=== PATIENT | female | born 1955 | race Caucasian/White ===

== ENCOUNTER 2018-11-08 13:53 | Observation (INO) | payer MEDICARE, OTHER ==
--- NOTE | 2018-11-08 14:09 | ED ---
Chest Pain HPI - General Chief Complaint: Chest Pain Stated Complaint: Chest Pain/Hypertension Time Seen by Provider: 11/08/18 14:04 Source: patient, RN notes reviewed, old records reviewed Mode of arrival: wheelchair Limitations: no limitations - History of Present Illness Initial Comments: This is a 63-year-old female the ER for evaluation history of hypertension high cholesterol. Former history of smoking. No recent travel history no sick contacts. Patient coming of chest pain diaphoresis and shortness of breath for a few days now. No significant modifying factors that she can relate. No fevers. No nausea vomiting and diarrhea. No recent change in medical history of medical problems. No recent change in medications. Chest pain and di fficulty breathing significantly worse today MD Complaint: chest pain -: hour(s) Onset: during rest, during exertion Pain Location: substernal, left chest Pain Radiation: LUE Severity: moderate Severity scale (1-10): 4 Quality: heaviness Consistency: constant Improves With: nothing Worsens With: nothing Treatments Prior to Arrival: none - Related Data Home Medications Medication Instructions Recorded Confirmed Albuterol Inhaler [Ventolin Hfa 2 puff INHALATION RT-Q6H PRN 01/09/14 11/08/18 Inhaler] FLUoxetine HCL [PROzac] 20 mg PO TID 01/09/14 11/08/18 Fluticasone/Salmeterol [Advair 1 puff INHALATION RT-BID 01/09/14 11/08/18 250-50 Diskus] Hydrocodone/Acetaminophen 1 tab PO Q6HR PRN 01/09/14 11/08/18 [Hydrocodone/Acetaminophen 5-325] Zolpidem [Ambien] 10 mg PO HS PRN 01/09/14 11/08/18 Atorvastatin [Lipitor] 40 mg PO DAILY 11/08/18 11/08/18 Ibuprofen [Motrin] 600 mg PO TID PRN 11/08/18 11/08/18 Losartan/Hydrochlorothiazide 1 tab PO DAILY 11/08/18 11/08/18 [Losartan-Hctz 100-25 mg Tab] Allergies Allergy/AdvReac Type Severity Reaction Status Date / Time No Known Allergies Allergy Verified 11/08/18 14:12 Review of Systems ROS Statement: Those systems with pertinent positive or pertinent negative responses have been documented in the HPI. ROS Other: All systems not noted in ROS Statement are negative. EKG Findings - EKG Comments: EKG Findings:: EKG shows sinus rhythm rate of 89, NC 120, QRS 72, QTc 479 Past Medical History Past Medical History: Asthma, Hypertension Additional Past Medical History / Comment(s): Pt states she awoke this am-0400 with upper chest pressure/tightness/SOB? confused-seeing family not there and using wrong words/. She tried using her Albuterol inhaler with no relief. then drove pt to ER. History of Any Multi-Drug Resistant Organisms: None Reported Past Surgical History: Appendectomy, Back Surgery, Cholecystectomy, Hysterectomy, Tonsillectomy Additional Past Surgical History / Comment(s): Hx [address] Jones. Low back surgery [id number] elsewhere. Hysterectomy at age 22 then at age 36 bilateral oophorectomy d/t ovarian CA-had some chemotherapy. Lap cholectomy 2011 Dr. Landaverde. Past Anesthesia/Blood Transfusion Reactions: No Reported Reaction Past Psychological History: No Psychological Hx Reported Smoking Status: Never smoker Past Alcohol Use History: None Reported Past Drug Use History: None Reported - Past Family History Father Family Medical History: No Reported History Additional Family Medical History / Comment(s): Father at age 94 of "old age" Mother Family Medical History: Diabetes Mellitus Additional Family Medical History / Comment(s): Mother at 74yrs of pancreatic CA. General Exam Limitations: no limitations General appearance: alert, in no apparent distress Head exam: Present: atraumatic, normocephalic, normal inspection Eye exam: Present: normal appearance, PERRL, EOMI. Absent: scleral icterus, conjunctival injection, periorbital swelling ENT exam: Present: normal exam, mucous membranes moist Neck exam: Present: normal inspection. Absent: tenderness, meningismus, lymphadenopathy Respiratory exam: Present: normal lung sounds bilaterally. Absent: respiratory distress, wheezes, rales, rhonchi, stridor Cardiovascular Exam: Present: regular rate, normal rhythm, normal heart sounds. Absent: systolic murmur, diastolic murmur, rubs, gallop, clicks GI/Abdominal exam: Present: soft, normal bowel sounds. Absent: distended, tenderness, guarding, rebound, rigid Extremities exam: Present: normal inspection, full ROM, normal capillary refill. Absent: tenderness, pedal edema, joint swelling, calf tenderness Back exam: Present: normal inspection Neurological exam: Present: alert, oriented X3, CN II-XII intact Psychiatric exam: Present: normal affect, normal mood Skin exam: Present: warm, dry, intact, normal color. Absent: rash Course Vital Signs 11/08/18 13:59 Temperature 98.3 F Pulse Rate 97 Respiratory 16 Rate Blood Pressure 161/104 O2 Sat by Pulse 96 Oximetry - Reevaluation(s) Reevaluation #1: 11/08/18 15:58 Medical record is reviewed Reevaluation #2: 11/08/18 15:59 Patient still with chest pain currently Chest Pain MDM - MDM 63 female the ER for evaluation chest pain history of heart risk factors including high cholesterol high blood pressure. Patient be admitted for cardiac observation Critical Care Time Critical Care Time: Yes Total Critical Care Time: 31 Disposition Clinical Impression: Chest pain Disposition: ADMITTED IP TO THIS HOSP Condition: Undetermined Instructions (If sedation given, give patient instructions): Chest Pain (ED) Is patient prescribed a controlled substance at d/c from ED?: No Referrals: Gail Ace MD [Primary Care Provider] - 1-2 days
[2018-11-08 14:42] LABS: Albumin 4.5 g/dL (3.5-5.0); Calcium 9.8 mg/dL (8.4-10.2); D-Dimer 0.46 mg/L FEU (<0.60); Magnesium 2.3 mg/dL (1.6-2.3); Partial Thromboplastin Time 26.5 sec (22.0-30.0); Potassium 4.2 mmol/L (3.5-5.1); Prothrombin Time 10.8 sec (9.0-12.0); Total Bilirubin 0.5 mg/dL (0.2-1.3); Total Protein 7.9 g/dL (6.3-8.2)
[2018-11-08 15:01] LABS: Basophils # (A) 0.1 k/uL (0-0.2); Basophils % (A) 0 %; Eosinophils # (A) 0.1 k/uL (0-0.7); Eosinophils % (A) 1 %; HCT 45.7 % (34.0-46.0); Lymphocytes # (A) 2.9 k/uL (1.0-4.8); Lymphocytes % (A) 24 %; MCH 29.6 pg (25.0-35.0); MCHC 30.7 g/dL (31.0-37.0); MCV 96.4 fL (80.0-100.0); Mean Platelet Volume 7.3; Monocytes # (A) 0.4 k/uL (0-1.0); Monocytes % (A) 3 %; Neutrophils # (A) 8.5 k/uL (1.3-7.7); Neutrophils % (A) 70 %; Platelet Count 566 k/uL (150-450); RBC 4.74 m/uL (3.80-5.40); RDW 13.8 % (11.5-15.5); WBC 12.2 k/uL (3.8-10.6)
--- NOTE | 2018-11-08 15:41 | P.HPIM ---
History of Present Illness Chief Complaint: Nausea and shortness of breath This very pleasant 62-year-old female who comes into the ER with above-mentioned complaint. The patient says that for the past few days she's been having more nausea and also she is having vomiting. She said that she's more shortness of breath and is having cough as well. She does not complain of any chest pain but says that she feels like more like heartburn in the center of the chest. She otherwise does not complain of any abdominal pain, no diarrhea consultation, no tingling numbness on in the extremities, itch no rash. She tried albuterol at home there was no relief so they came to the ER ER course-temperature 98.3 pulse 97 respirations 16 blood pressure 16-1/104 satting 96% 2 L.. Labwork was initial WBC 12.2 hemoglobin 14.0 platelets 566 d- dimer was 0.46 potassium 4.2 sodium 140 B1 19 creatinine 0.90 troponin was 0.012 lipase is 115. EKG was done which showed normal sinus rhythm. Review of Systems All systems: negative Past Medical History Past Medical History: Asthma, Hypertension Additional Past Medical History / Comment(s): Pt states she awoke this am-0400 with upper chest pressure/tightness/SOB? confused-seeing family not there and using wrong words/. She tried using her Albuterol inhaler with no relief. then drove pt to ER. History of Any Multi-Drug Resistant Organisms: None Reported Past Surgical History: Appendectomy, Back Surgery, Cholecystectomy, Hysterec cristopher, Tonsillectomy Additional Past Surgical History / Comment(s): Hx [address] Jones. Low back surgery [id number] elsewhere. Hysterectomy at age 22 then at age 36 bilateral oophorectomy d/t ovarian CA-had some chemotherapy. Lap cholectomy 2011 Dr. Landaverde. Past Anesthesia/Blood Transfusion Reactions: No Reported Reaction Past Psychological History: No Psychological Hx Reported Smoking Status: Never smoker Past Alcohol Use History: None Reported Past Drug Use History: None Reported - Past Family History Father Family Medical History: No Reported History Additional Family Medical History / Comment(s): Father at age 94 of "old age" Mother Family Medical History: Diabetes Mellitus Additional Family Medical History / Comment(s): Mother at 74yrs of pancreatic CA. Medications and Allergies Home Medications Medication Instructions Recorded Confirmed Type Albuterol Inhaler [Ventolin Hfa 2 puff INHALATION RT-Q6H PRN 01/09/14 11/08/18 History Inhaler] FLUoxetine HCL [PROzac] 20 mg PO TID 01/09/14 11/08/18 History Fluticasone/Salmeterol [Advair 1 puff INHALATION RT-BID 01/09/14 11/08/18 History 250-50 Diskus] Hydrocodone/Acetaminophen 1 tab PO Q6HR PRN 01/09/14 11/08/18 History [Hydrocodone/Acetaminophen 5-325] Zolpidem [Ambien] 10 mg PO HS PRN 01/09/14 11/08/18 History Atorvastatin [Lipitor] 40 mg PO DAILY 11/08/18 11/08/18 History Ibuprofen [Motrin] 600 mg PO TID PRN 11/08/18 11/08/18 History Losartan/Hydrochlorothiazide 1 tab PO DAILY 11/08/18 11/08/18 History [Losartan-Hctz 100-25 mg Tab] Allergies Allergy/AdvReac Type Severity Reaction Status Date / Time No Known Allergies Allergy Verified 11/08/18 14:12 Physical Exam Vitals: Vital Signs Temp Pulse Resp BP Pulse Ox 11/08/18 13:59 98.3 F 97 16 161/104 96 Intake and Output 11/08/18 11/08/18 11/08/18 06:59 14:59 22:59 Other: Weight 72.575 kg On exam, alert and oriented x3. HEENT: Conjunctivae normal. eyes normal. NECK: No JVD. No thyroid enlargement. No LNs CARDIOVASCULAR: S1, S2 muffled. No murmur RESPIRATION: Breath sounds diminished in the bases. No rhonchi or crackles. No bronchial breathing. ABDOMEN: Soft, nontender . No guarding. no masses palpable. No ascites, No hepatosplenomegaly.Bowel sounds heard. LEGS: No edema. no swelling NERVOUS SYSTEM: Cranial N 2-12 grossly normal. Moves all 4 limbs. No focal deficits. No sensory deficit. No signs of cerebellar dysfucntion. Skin: no ulcer no rash Joints: No active swelling. No inflammation. Lymphatic system. No LN neck axilla or groin. Results CBC & Chem 7: 11/08/18 14:13 11/08/18 14:13 Labs: Abnormal Lab Results - Last 24 Hours (Table) 11/08/18 11/08/18 Range/Units 14:13 14:13 WBC 12.2 H (3.8-10.6) k/uL MCHC 30.7 L (31.0-37.0) g/dL Plt Count 566 H (150-450) k/uL Neutrophils # 8.5 H (1.3-7.7) k/uL Carbon Dioxide 20 L (22-30) mmol/L Glucose 110 H (74-99) mg/dL Alkaline Phosphatase 144 H (38-126) U/L Assessment and Plan Assessment: - Nausea, chest pain burning in nature shortness of breath, need to rule out cardiac cause - Hypertension - Asthma Plan - We will admit the patient to [facility] with telemetry under observation - We will monitor troponin levels - The patient is going for a chest x-ray of the time examination. The chest x- ray is negative patient might need to rule out a PE. We'll also get a VQ scan or a CTA depending upon the situation - We will probably consult cardiology to rule out a cardiac cause - Patient says that she has more as her house. At the time she's not wheezing. We will put on some breathing treatments and see the help. If she doesn't improve may be she can be put on steroids later on - We'll resume the patient's home medications - DVT and GI prophylaxis - We'll order for lab work in the morning - Patient is full code
--- NOTE | 2018-11-08 15:47 | XR ---
EXAMINATION TYPE: XR chest 2V DATE OF EXAM: 11/08/2018 COMPARISON: 01/09/2014 INDICATION: Chest pain asthma history short of breath TECHNIQUE: Frontal and lateral views of the chest are obtained. FINDINGS: The heart size is normal. The pulmonary vasculature is normal. The lungs are clear. Postsurgical changes are within the lower lumbar spine IMPRESSION: 1. No acute pulmonary process.
[2018-11-08] MEDS ORDERED: HEPARIN SODIUM,PORCINE 5,000 UNIT/ML 1 ML VIAL IV PRN (15:54)
[2018-11-08] MEDS ORDERED: HEPARIN SODIUM,PORCINE 5,000 UNIT/ML 1 ML VIAL IV ONE (15:54)
[2018-11-08] MEDS ORDERED: NITROGLYCERIN SL TABS 0.4 MG TAB SUBLINGUAL PRN (15:54)
[2018-11-08] MEDS ORDERED: ASPIRIN 81 MG PO STA (15:54)
[2018-11-08] MEDS ORDERED: HEPARIN SOD,PORK IN 0.45% NACL 25,000 UNIT in 0.45% NACL 1 250ML.BAG IV SCH (16:00)
[2018-11-08] MEDS ORDERED: ONDANSETRON 4 MG/2 ML VIAL IVP PRN ×2 (16:50→22:01)
[2018-11-08] MEDS ORDERED: ENALAPRILAT 1.25 MG/ML 1 ML VIAL IVP STA (17:18)
--- NOTE | 2018-11-08 18:50 | CT ---
EXAMINATION TYPE: CT angio chest DATE OF EXAM: 11/08/2018 6:18 PM COMPARISON: 01/09/2014 HISTORY: Chest pain, difficulty breathing. CT DLP: 311 mGycm Automated exposure control for dose reduction was used. CONTRAST: CTA scan of the thorax is performed with IV Contrast, patient injected with 100 mL of Isovue 370, pul monary embolism protocol. . There are 3-D post processed images. FINDINGS: There is some reticular nodular infiltrate in both lower lobes. There is some scarring and subsegment al atelectasis at the lung bases. There is no mediastinal adenopathy. Thoracic aorta is intact withou t evidence of aneurysm or dissection. There are no hilar masses. There is normal contrast opacification of the pulmonary arteries. There ar e no filling defects. The bony thorax appears intact. IMPRESSION: NO EVIDENCE OF PULMONARY EMBOLISM. PATCHY BILATERAL LOWER LOBE PULMONARY RETICULAR-NODULAR INFILTRATE LIKELY RELATED TO INFLAMMATORY DIS EASE AND ATELECTASIS.
[2018-11-08] MEDS ORDERED: LABETALOL SYRINGE 5 MG/ML IVP STA (19:29)
[2018-11-08] MEDS: SODIUM CHLORIDE 0.9% 1,000 ML IV SCH (19:41)
[2018-11-08 21:21] VITALS: BMI 26.6
[2018-11-08] MEDS ORDERED: ALBUTEROL NEBULIZED 2.5 MG/3 ML INHALATION PRN (21:35)
[2018-11-08] MEDS ORDERED: IBUPROFEN 600 MG TAB PO PRN (21:35)
[2018-11-08] MEDS: ZOLPIDEM 10 MG TAB PO PRN (21:59)
[2018-11-08] MEDS: FLUoxetine HCL 20 MG CAP PO SCH (22:00)
[2018-11-09] MEDS: SODIUM CHLORIDE 0.9% 1,000 ML IV SCH ×3 (03:06→20:04)
[2018-11-09] MEDS: SYMBICORT 80-4.5 MCG INHALER INHALATION SCH ×2 (07:06→18:54)
[2018-11-09 07:16] LABS: Mean Platelet Volume 7.2; Platelet Count 465 k/uL (150-450)
[2018-11-09 07:31] LABS: Cholesterol 251 mg/dL (<200); HDL Cholesterol 57 mg/dL (40-60); LDL Cholesterol,Calculated 149 mg/dL (0-99); Triglycerides 223 mg/dL (<150)
[2018-11-09] MEDS ORDERED: ATORVASTATIN 80 MG TAB PO SCH ×2 (09:00)
[2018-11-09] MEDS ORDERED: DOBUTamine DRIP for NUC MED 500 MG in DEXTROSE/WATER 1 250ML.BAG IV ONE ×2 (09:21→10:02)
--- NOTE | 2018-11-09 11:38 | P.CRDCN ---
History of Present Illness History of present illness: This is a pleasant 63-year-old female past medical history significant for dyslipidemia, hypertension and former nicotine dependence. 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 We've been asked to see her in consultation secondary to chest discomfort. She states about 2 weeks ago she started having nausea and vomiting , was unable to tolerate PO intake for about 4 days. Since that time she has been persistently nauseated with no specific aggravating factor however is tolerating PO intake. She also describes a burning sensation in the mid-sternal region that has been intermittent and ongoing for the last 5 years that is resolved with with OTC antacids. She went to see PCP yesterday regarding nausea and her blood pressure was quite elevated so she was sent to ED for further evaluation. Upon arrival to the emergency department blood pressure was 161/104 and 177/109. She was given IV labetalol and enalapril. She has had no chest pain since arriving at the hospital. She also describes that she has felt incr easingly short of breath with a non-productive cough recently and feels like she is wheezing with minimal activity. She believes she may have COPD however has not been diagnosed as such. EKG reveals sinus mechanism with no acute ST or T wave abnormalities noted. Chest x-ray is negative for acute cardiopulmonary process. CTA chest negative for pulmonary embolism with evidence of bilateral lower lobe nodule/infiltrates. Laboratory data reviewed, WBC 12.2, hemoglobin 14, platelets 465, d-dimer 0.46, sodium 140, potassium 4.2, creatinine 0.9, magnesium 2.3, cardiac enzymes negative 3, LDL 149. Current cardiac medications include atorvastatin 40 mg daily and losartan/HCTZ 100/25 mg daily. At the time of my exam: CONSTITUTIONAL: Denies fever. Denies chills. EYES: Denies blurred vision. Denies vision changes. Denies eye pain. EARS, NOSE, MOUTH & THROAT: Denies headache. Denies sore throat. Denies ear pain. CARDIOVASCULAR: Denies chest pain. Denies shortness of breath. Denies orthopnea. Denies PND. Denies palpitations. RESPIRATORY: Denies cough. GASTROINTESTINAL: Denies abdominal pain. Denies diarrhea. Denies constipation. Denies nausea. Denies vomiting. MUSCULOSKELETAL: Denies myalgias. INTEGUMENTARY: Denies pruitis. Denies rash. NEUROLOGIC: Denies numbness. Denies tingling. Denies weakness. PSYCHIATRIC: Denies anxiety. Denies depression. ENDOCRINE: Denies fatigue. Denies weight change. Denies polydipsia. Denies polyurina. GENITOURINARY: Denies burning, hematuria or urgency with micturation. HEMATOLOGIC: Denies history of anemia. Denies bleeding. Blood pressure 94/61 heart rate 52 afebrile maintaining oxygen saturation on room air GENERAL: This is a 63-year-old female in no apparent distress at the time of my examination. HEENT: Head is atraumatic, normocephalic. Pupils are equal, round. Sclerae anicteric. Conjunctivae are clear. Mucous membranes of the mouth are moist. Neck is supple. There is no jugular venous distention. No carotid bruit is heard. LUNGS: Clear to auscultation no wheezes, rales or rhonchi. No chest wall tenderness is noted on palpation or with deep breathing. HEART: Regular rate and rhythm without murmurs, rubs or gallops. S1 and S2 heard. ABDOMEN: Soft, nontender. Bowel sounds are heard. No organomegaly noted. EXTREMITIES: No evidence of peripheral edema and no calf tenderness noted. VASCULAR: Radial and dorsalis pedis pulses palpated, no evidence of clubbing. NEUROLOGIC: Patient is awake, alert and oriented x3. ASSESSMENT Chest pain, atypical for angina. An acute coronary event has been ruled out. Leukocytosis Hypertension Dyslipidemia Former nicotine dependence PLAN An acute coronary event has been ruled out, discontinue heparin infusion. Obtain 2D echocardiogram and doppler study to assess cardiac structure and function. Perform dobutamine stress echocardiogram to assess for stress induced ischemia. CT scan evidence of lower lobe infiltrates with cough and leukocytosis, consider possibility of pneumonia as cause for symptoms. If stress test and echo are normal she is stable from a cardiac perspective. Increase atorvastatin as tolerated to 80 mg daily for persistent elevated LDL despite medication compliance. Diet modifications discussed as well. Follow up in the office with Dr. Weir upon discharge. Thank you kindly for this consultation. Nurse Practitioner note has been reviewed, I agree with a documented findings and plan of care. Patient was seen and examined. Past Medical History Past Medical History: Asthma, Hypertension Additional Past Medical History / Comment(s): . History of Any Multi-Drug Resistant Organisms: None Reported Past Surgical History: Appendectomy, Back Surgery, Cholecystectomy, Hysterectomy, Tonsillectomy Additional Past Surgical History / Comment(s): Hx [address] Jones. Low back surgery [id number] elsewhere. Hysterectomy at age 22 then at age 36 bilateral oophorectomy d/t ovarian CA-had some chemotherapy. Lap cholectomy 2011 Dr. Landaverde. Past Anesthesia/Blood Transfusion Reactions: No Reported Reaction Smoking Status: Never smoker - Past Family History Father Family Medical History: No Reported History Additional Family Medical History / Comment(s): Father at age 94 of "old age" Mother Family Medical History: Diabetes Mellitus Additional Family Medical History / Comment(s): Mother at 74yrs of pancreatic CA. Medications and Allergies Home Medications Medication Instructions Recorded Confirmed Type Albuterol Inhaler [Ventolin Hfa 2 puff INHALATION RT-Q6H PRN 01/09/14 11/08/18 History Inhaler] FLUoxetine HCL [PROzac] 20 mg PO TID 01/09/14 11/08/18 History Fluticasone/Salmeterol [Advair 1 puff INHALATION RT-BID 01/09/14 11/08/18 History 250-50 Diskus] Zolpidem [Ambien] 10 mg PO HS PRN 01/09/14 11/08/18 History Atorvastatin [Lipitor] 40 mg PO DAILY 11/08/18 11/08/18 History Ibuprofen [Motrin] 600 mg PO TID PRN 11/08/18 11/08/18 History Losartan/Hydrochlorothiazide 1 tab PO DAILY 11/08/18 11/08/18 History [Losartan-Hctz 100-25 mg Tab] Allergies Allergy/AdvReac Type Severity Reaction Status Date / Time No Known Allergies Allergy Verified 11/08/18 21:11 Physical Exam Vitals: Vital Signs Temp Pulse Pulse Resp BP BP Pulse Ox 11/09/18 07:36 98.1 F 52 L 16 94/61 94 L 11/09/18 07:10 96 11/09/18 03:53 98.2 F 78 16 94/58 96 11/09/18 02:23 16 11/08/18 23:34 98.6 F 80 16 100/68 96 11/08/18 23:32 16 11/08/18 21:38 98.3 F 80 16 101/69 96 11/08/18 20:49 124/80 11/08/18 20:01 132/91 11/08/18 20:00 16 11/08/18 19:00 85 17 161/103 96 11/08/18 18:30 89 175/99 97 11/08/18 18:00 88 9 L 171/101 95 11/08/18 17:30 86 9 L 165/106 97 11/08/18 17:00 92 38 H 157/111 96 11/08/18 16:30 90 16 98 11/08/18 16:00 164/106 11/08/18 15:30 164/106 11/08/18 15:00 90 15 165/107 97 11/08/18 14:30 91 15 177/109 97 11/08/18 14:10 100 11 L 93 L 11/08/18 13:59 98.3 F 97 16 161/104 96 Intake and Output 11/08/18 11/09/18 11/09/18 22:59 06:59 14:59 Intake Total 66.334 Balance 66.334 Intake: Intake, IV Titration 66.334 Amount Heparin Sod,Pork in 0.45% 66.334 NaCl 25,000 unit In 0.45 % NaCl 1 250ml.bag @ 12 UNITS/KG/HR 8.709 mls/hr IV .Q24H [facility] Rx#: [id number] Other: # Voids 1 Results 11/09/18 06:11 11/08/18 14:13 Cardiac Enzymes 11/08/18 11/08/18 11/08/18 Range/Units 14:13 14:13 20:14 AST 21 (14-36) U/L Troponin I <0.012 <0.012 (0.000-0.034) ng/mL 11/09/18 Range/Units 01:29 AST (14-36) U/L Troponin I <0.012 (0.000-0.034) ng/mL Coagulation 11/08/18 11/08/18 11/09/18 Range/Units 14:13 23:03 06:11 PT 10.8 (9.0-12.0) sec APTT 26.5 45.1 H 50.4 H (22.0-30.0) sec Lipids 11/09/18 Range/Units 06:11 Triglycerides 223 H (<150) mg/dL Cholesterol 251 H (<200) mg/dL HDL Cholesterol 57 (40-60) mg/dL CBC 11/08/18 11/09/18 Range/Units 14:13 06:11 WBC 12.2 H (3.8-10.6) k/uL RBC 4.74 (3.80-5.40) m/uL Hgb 14.0 (11.4-16.0) gm/dL Hct 45.7 (34.0-46.0) % Plt Count 566 H 465 H (150-450) k/uL Comprehensive Metabolic Panel 11/08/18 Range/Units 14:13 Sodium 140 (137-145) mmol/L Potassium 4.2 (3.5-5.1) mmol/L Chloride 105 (98-107) mmol/L Carbon Dioxide 20 L (22-30) mmol/L BUN 9 (7-17) mg/dL Creatinine 0.90 (0.52-1.04) mg/dL Glucose 110 H (74-99) mg/dL Calcium 9.8 (8.4-10.2) mg/dL AST 21 (14-36) U/L ALT 12 (9-52) U/L Alkaline Phosphatase 144 H (38-126) U/L Total Protein 7.9 (6.3-8.2) g/dL Albumin 4.5 (3.5-5.0) g/dL Current Medications Generic Name Dose Route Start Last Admin Trade Name Freq PRN Reason Stop Dose Admin Albuterol Sulfate 2.5 mg 11/08/18 21:35 Ventolin Nebulized INHALATION RT-Q6H PRN Shortness Of Breath Aspirin 325 mg 11/09/18 09:00 Aspirin PO DAILY ALESSIO Budesonide/Formoterol Fumarate 2 puff 11/09/18 08:00 11/09/18 07:06 Symbicort 80-4.5 Mcg Inhaler INHALATION 2 puff RT-BID ALESSIO Administration Fluoxetine HCl 20 mg 11/08/18 22:00 11/08/18 22:00 Prozac PO 20 mg TID ALESSIO Administration HCTZ/Losartan Potassium 1 each 11/09/18 09:00 Hyzaar 50-12.5 PO DAILY ALESSIO Heparin Sodium (Porcine) 0 unit 11/08/18 15:54 Heparin IV Q6HR PRN Low PTT Protocol Sodium Chloride 1,000 mls @ 100 mls/hr 11/08/18 16:00 11/09/18 03:06 Saline 0.9% IV Not Given .Q10H [facility] Ibuprofen 600 mg 11/08/18 21:35 Motrin PO TID PRN Pain Nitroglycerin 0.4 mg 11/08/18 15:54 Nitrostat SUBLINGUAL Q5M PRN Chest Pain Ondansetron HCl 4 mg 11/08/18 16:50 11/08/18 16:50 Zofran IVP 4 mg ONCE PRN Administration Nausea And Vomiting Ondansetron HCl 4 mg 11/08/18 22:01 11/08/18 22:05 Zofran IVP 4 mg Q6HR PRN Administration Nausea And Vomiting Zolpidem Tartrate 10 mg 11/08/18 21:35 11/08/18 21:59 Ambien PO 10 mg HS PRN Administration Insomnia Intake and Output 11/08/18 11/09/18 11/09/18 22:59 06:59 14:59 Intake Total 66.334 Balance 66.334 Intake: Intake, IV Titration 66.334 Amount Heparin Sod,Pork in 0.45% 66.334 NaCl 25,000 unit In 0.45 % NaCl 1 250ml.bag @ 12 UNITS/KG/HR 8.709 mls/hr IV .Q24H [facility] Rx#: [id number] Other: # Voids 1 11/09/18 06:11 11/08/18 14:13
[2018-11-09] MEDS ORDERED: ONDANSETRON 4 MG/2 ML VIAL ONE (12:00)
[2018-11-09] MEDS: FLUoxetine HCL 20 MG CAP PO SCH ×3 (12:26→21:28)
[2018-11-09] MEDS: ASPIRIN 325 MG TAB PO SCH (12:26)
[2018-11-09] MEDS: LOSARTAN-HCTZ 50-12.5 MG 1 EACH TAB PO SCH (12:26)
[2018-11-09] MEDS: ATORVASTATIN 80 MG TAB PO SCH (12:26)
--- NOTE | 2018-11-09 12:27 | P.STRESS ---
- Stress Test Note Stress Test Results/Findings: Exam Performed: dobutamine stress echo with con Exam Date: 11/09/18 Reason for Exam: CP Height: 5 ft 5 in Weight: 72.575 kg Protocol: DOBUTAMINE STRESS ECHO Stage: 4 Duration of Exercise: 10:54 Resting Heart Rate: 80 Resting Blood Pressure: 123/71 Maximum Achieved Heart Rate: 142 Maximum Achieved Blood Pressure: 155/70 85% PMHR: 132 100% PMHR: 155 METS: NA Technologist Comment: Stress Test Results/Findings: This is a 63-year-old female with history of hypertension, hypercholesteremia, who was admitted to the hospital with complaints of chest pain and nausea. EKGs and cardiac enzymes are negative. Stress data: Baseline EKG showed sinus rhythm with normal NV interval and QRS duration. Blood pressure at rest is 123/71 with pulse rate of 80. A standard dose of dobutamine was initiated and was titrated to maximum of 40 mics, achieving a maximal heart rate 142 with a blood pressure off 103/61. EKGs again during and after the exercise did not reveal any significant changes from the baseline. Occasional PVCs were noted. Echo data: Baseline echo images show normal wall motion and thickening. Exercise echo images showed augmentation of wall motion and thickening in all the segments. Final impression: #1. Negative dobutamine stress test #2. Negative dobutamine stress echo.
[2018-11-09] MEDS ORDERED: methylPREDNISolone SOD SUCCI 125 MG/2 ML VIAL IV STA (15:14)
--- NOTE | 2018-11-09 16:46 | ECHOS ---
Stress Test Results/Findings: Exam Performed: dobutamine stress echo with con Exam Date: 11/09/18 Reason for Exam: CP Height: 5 ft 5 in Weight: 72.575 kg Protocol: DOBUTAMINE STRESS ECHO Stage: 4 Duration of Exercise: 10:54 Resting Heart Rate: 80 Resting Blood Pressure: 123/71 Maximum Achieved Heart Rate: 142 Maximum Achieved Blood Pressure: 155/70 85% PMHR: 132 100% PMHR: 155 METS: NA Technologist Comment: Stress Test Results/Findings: This is a 63-year-old female with history of hypertension, hypercholesteremia, who was admitted to the hospital with complaints of chest pain and nausea. EKGs and cardiac enzymes are negative. Stress data: Baseline EKG showed sinus rhythm with normal AL interval and QRS duration. Blood pressure at rest is 123/71 with pulse rate of 80. A standard dose of dobutamine was initiated and was titrated to maximum of 40 mics, achieving a maximal heart rate 142 with a blood pressure off 103/61. EKGs again during and after the exercise did not reveal any significant changes from the baseline. Occasional PVCs were noted. Echo data: Baseline echo images show normal wall motion and thickening. Exercise echo images showed augmentation of wall motion and thickening in all the segments. Final impression: #1. Negative dobutamine stress test #2. Negative dobutamine stress echo. MONI
[2018-11-09] MEDS: BUDESONIDE 0.5 MG/2 ML NEBU INHALATION SCH (18:49)
[2018-11-09] MEDS: IPRATROPIUM-ALBUTEROL 3 ML NEB INHALATION SCH ×2 (18:49→18:57)
[2018-11-09 19:37] VITALS: RESP 16
[2018-11-09] MEDS: DOXYCYCLINE 100 MG in SODIUM CHLORIDE 0.9% 100 ML IVPB SCH (20:04)
[2018-11-09] MEDS: methylPREDNISolone SOD SUCCI 40 MG/ML 1 ML VIAL IV SCH (23:03)
[2018-11-09] MEDS: ZOLPIDEM 10 MG TAB PO PRN (23:03)
[2018-11-10] MEDS: IPRATROPIUM-ALBUTEROL 3 ML NEB INHALATION SCH ×4 (00:09→11:05)
[2018-11-10] MEDS: SYMBICORT 80-4.5 MCG INHALER INHALATION SCH (07:06)
[2018-11-10] MEDS: BUDESONIDE 0.5 MG/2 ML NEBU INHALATION SCH (07:07)
[2018-11-10] MEDS: FLUoxetine HCL 20 MG CAP PO SCH (09:04)
[2018-11-10] MEDS: ASPIRIN 325 MG TAB PO SCH (09:04)
[2018-11-10] MEDS: methylPREDNISolone SOD SUCCI 40 MG/ML 1 ML VIAL IV SCH (09:04)
[2018-11-10] MEDS: ATORVASTATIN 80 MG TAB PO SCH (09:04)
[2018-11-10] MEDS: LOSARTAN-HCTZ 50-12.5 MG 1 EACH TAB PO SCH (09:04)
[2018-11-10] MEDS: DOXYCYCLINE 100 MG in SODIUM CHLORIDE 0.9% 100 ML IVPB SCH (09:09)
--- NOTE | 2018-11-10 09:51 | P.PN ---
Subjective This very pleasant 62-year-old female who comes into the ER with above-mentioned complaint. The patient says that for the past few days she's been having more nausea and also she is having vomiting. She said that she's more shortness of breath and is having cough as well. She does not complain of any chest pain but says that she feels like more like heartburn in the center of the chest. She otherwise does not complain of any abdominal pain, no diarrhea consultation, no tingling numbness on in the extremities, itch no rash. She tried albuterol at home there was no relief so they came to the ER ER course-temperature 98.3 pulse 97 respirations 16 blood pressure 16-1/104 satting 96% 2 L.. Labwork was initial WBC 12.2 hemoglobin 14.0 platelets 566 d- dimer was 0.46 potassium 4.2 sodium 140 B1 19 creatinine 0.90 troponin was 0.012 lipase is 115. EKG was done which showed normal sinus rhythm. Patient was cleared by cardiology to be discharged At the time examination today patient was short of breath and was having some slight wheezes and is coughing as well. No chest pain or racing heart Objective - Vital Signs Vital signs: Vital Signs Temp 98.6 F 11/10/18 08:00 Pulse 99 11/10/18 08:00 Resp 16 11/10/18 08:00 BP 127/84 11/10/18 08:00 Pulse Ox 95 11/10/18 08:00 Intake & Output 11/09/18 11/10/18 11/10/18 18:59 06:59 18:59 Weight 72.575 kg - Exam On exam, alert and oriented x3. HEENT: Conjunctivae normal. eyes normal. NECK: No JVD. No thyroid enlargement. No LNs CARDIOVASCULAR: S1, S2 muffled. No murmur RESPIRATION: Patient is having mild wheezing ABDOMEN: Soft, nontender . No guarding. no masses palpable. No ascites, No hepatosplenomegaly.Bowel sounds heard. LEGS: No edema. no swelling NERVOUS SYSTEM: Cranial N 2-12 grossly normal. Moves all 4 limbs. No focal deficits. No sensory deficit. No signs of cerebellar dysfucntion. Skin: no ulcer no rash Joints: No active swelling. No inflammation. Lymphatic system. No LN neck axilla or groin. - Labs CBC & Chem 7: 11/09/18 06:11 11/08/18 14:13 Assessment and Plan Assessment: -Acute bronchitis with mild asthma exacerbation - Nausea, chest pain burning in nature shortness of breath, need to rule out cardiac cause - Hypertension - Asthma Plan - We will admit the patient to [facility] with telemetry under observation - We will monitor troponin levels - The patient is going for a chest x-ray of the time examination. The chest x- ray is negative patient might need to rule out a PE. We'll also get a VQ scan or a CTA depending upon the situation - We will probably consult cardiology to rule out a cardiac cause - Patient says that she has more as her house. At the time she's not wheezing. We will put on some breathing treatments and see the help. If she doesn't improve may be she can be put on steroids later on - We'll resume the patient's home medications - DVT and GI prophylaxis - We'll order for lab work in the morning - Patient is full code 11/09/2018 - We will start the patient on Solu-Medrol, started on antibiotics and breathing treatments - We'll continue rest of the medical care - See how the patient does. She was pretty short of breath on exertion and was wheezing. - We'll continue rest of the medical care - The patient improves by tomorrow she will probably be discharged or she might need to be turned as an inpatient
[2018-11-10] MEDS: SODIUM CHLORIDE 0.9% 1,000 ML IV SCH (10:30)
[2018-11-10 12:49] VITALS: BP 150/94; PULSE 101; TEMP 97.6
--- NOTE | 2018-11-10 13:58 | P.DS ---
Providers Date of admission: 11/08/18 15:57 Expected date of discharge: 11/10/18 Attending physician: Radha Lima Consults: 11/08/18 15:54 Consult Physician Urgent Consulting Provider: Isabel Sutherland Consult Reason/Comments: cp Do you want consulting provider notified?: Yes Primary care physician: Gail Ace Hospital Course: Discharge diagnosis -Acute bronchitis with mild asthma exacerbation - Nausea, chest pain burning in nature shortness of breath, need to rule out cardiac cause - Hypertension - Asthma Hospital course This very pleasant 62-year-old female who comes into the ER with above-mentioned complaint. The patient says that for the past few days she's been having more nausea and also she is having vomiting. She said that she's more shortness of breath and is having cough as well. She does not complain of any chest pain but says that she feels like more like heartburn in the center of the chest. She otherwise does not complain of any abdominal pain, no diarrhea consultation, no tingling numbness on in the extremities, itch no rash. She tried albuterol at home there was no relief so they came to the ER ER course-temperature 98.3 pulse 97 respirations 16 blood pressure 16-1/104 satting 96% 2 L.. Labwork was initial WBC 12.2 hemoglobin 14.0 platelets 566 d- dimer was 0.46 potassium 4.2 sodium 140 B1 19 creatinine 0.90 troponin was 0.012 lipase is 115. EKG was done which showed normal sinus rythm Patient was cleared by cardiology to discharge but she was really short of breath and was wheezing at the time examination on 11/09/2018 On 11/10/2018 Patient shortness of breath and cough is much better She does not complain of any chest pain racing heart and was walking up and down the hallway without any problems On exam, alert and oriented x3. HEENT: Conjunctivae normal. eyes normal. NECK: No JVD. No thyroid enlargement. No LNs CARDIOVASCULAR: S1, S2 muffled. No murmur RESPIRATION: Breath sounds diminished in the bases. No rhonchi or crackles. No bronchial breathing. ABDOMEN: Soft, nontender . No guarding. no masses palpable. No ascites, No hepatosplenomegaly.Bowel sounds heard. LEGS: No edema. no swelling NERVOUS SYSTEM: Cranial N 2-12 grossly normal. Moves all 4 limbs. No focal deficits. No sensory deficit. No signs of cerebellar dysfucntion. Skin: no ulcer no rash Joints: No active swelling. No inflammation. Lymphatic system. No LN neck axilla or groin. Patient will be discharged on tapering dose of steroids, we'll discharge antibiotics and breathing treatments Patient is to follow with the primary care doctor in 1-2 days and with the electrostatic painter as per the recommendations Patient Condition at Discharge: Good Plan - Discharge Summary New Discharge Prescriptions: New methylPREDNISolone Dose Pack [Medrol Dose Pack] 4 mg PO DIRECTED #21 package Omeprazole [PriLOSEC] [facility] cap Doxycycline [Vibramycin] 100 mg PO BID 3 Days #14 capsule No Action Albuterol Inhaler [Ventolin Hfa Inhaler] 2 puff INHALATION RT-Q6H PRN PRN Reason: Shortness Of Breath Zolpidem [Ambien] 10 mg PO HS PRN PRN Reason: Insomnia FLUoxetine HCL [PROzac] 20 mg PO TID Fluticasone/Salmeterol [Advair 250-50 Diskus] 1 puff INHALATION RT-BID Ibuprofen [Motrin] 600 mg PO TID PRN PRN Reason: Pain Atorvastatin [Lipitor] 40 mg PO DAILY Losartan/Hydrochlorothiazide [Losartan-Hctz 100-25 mg Tab] 1 tab PO DAILY Discharge Medication List Albuterol Inhaler [Ventolin Hfa Inhaler] 2 puff INHALATION RT-Q6H PRN 01/09/14 [History] FLUoxetine HCL [PROzac] 20 mg PO TID 01/09/14 [History] Fluticasone/Salmeterol [Advair 250-50 Diskus] 1 puff INHALATION RT-BID 01/09/14 [History] Zolpidem [Ambien] 10 mg PO HS PRN 01/09/14 [History] Atorvastatin [Lipitor] 40 mg PO DAILY 11/08/18 [History] Ibuprofen [Motrin] 600 mg PO TID PRN 11/08/18 [History] Losartan/Hydrochlorothiazide [Losartan-Hctz 100-25 mg Tab] 1 tab PO DAILY 11/08/18 [History] Doxycycline [Vibramycin] 100 mg PO BID 3 Days #14 capsule 11/10/18 [Rx] Omeprazole [PriLOSEC] 20 mg PO AC-BRKFST #14 cap 11/10/18 [Rx] methylPREDNISolone Dose Pack [Medrol Dose Pack] 4 mg PO DIRECTED #21 package 11/10/18 [Rx] Follow up Appointment(s)/Referral(s): Gail Ace MD [Primary Care Provider] - 1-2 days Lorena Weir MD [STAFF PHYSICIAN] - 11/23/18 2:30 pm (arrive 15 minutes early and bring ID) Patient Instructions/Handouts: Chest Pain (ED) Activity/Diet/Wound Care/Special Instructions: If you have any increased chest pain racing heart, any cough or shortness of breath, any fever or chills, any headache, nausea vomiting, any diarrhea constipation, please call 911 and come to the ER Discharge Disposition: HOME SELF-CARE
== END 2018-11-10 14:23 | disposition home or self-care (01) ==
LOC: EC 13:53 → 1SOBS 15:57 → 4MS4W 11-10 10:33
PROVIDERS: ADMIT Hospitalist; ATTEND Hospitalist
DX: R07.89 Other chest pain (principal); J20.9 Acute bronchitis, unspecified; J45.901 Unspecified asthma with (acute) exacerbation; I10 Essential (primary) hypertension; E78.00 Pure hypercholesterolemia, unspecified; R11.2 Nausea with vomiting, unspecified; R61 Generalized hyperhidrosis; E78.5 Hyperlipidemia, unspecified; Z79.51 Long term (current) use of inhaled steroids; Z79.899 Other long term (current) drug therapy; Z90.49 Acquired absence of other specified parts of digestive tract; Z90.710 Acquired absence of both cervix and uterus; Z85.43 Personal history of malignant neoplasm of ovary; Z87.891 Personal history of nicotine dependence; Z90.722 Acquired absence of ovaries, bilateral; Z92.21 Personal history of antineoplastic chemotherapy; Z83.3 Family history of diabetes mellitus; Z80.0 Family history of malignant neoplasm of digestive organs
CPT/HCPCS: 96376 ×4; 96366 ×4; 96367; 96375 ×2; 96365; 99291; 36415; 94640 ×3; 94760; 93005; 93306; 85379; 83880; 80061; 80053; 83690; 83735; 84484 ×2; 85025; 85049; 85610; 85730 ×2; 71046; 71275; G0378 ×4; C8930; J1250; J1644 ×2; J2920 ×2; J2930; J2405 ×2; Q9950; Q9967; 93351

== ENCOUNTER → 2019-01-15 | Outpatient (CLI) | payer MEDICARE ==
--- NOTE | 2019-01-15 10:22 | FL ---
EXAMINATION TYPE: FL barium swallow DATE OF EXAM: 01/15/2019 COMPARISON: None HISTORY: GERD TECHNIQUE: A double air contrast UGI study is performed. FINDINGS: The esophagus dilates to normal caliber and has normal contour the gastroesophageal junction. The gas troesophageal junction opens to normal caliber. No hiatal hernia is evident. In the horizontal drinking position there is incomplete stripping of esophageal bolus. Secondary and a few tertiary contractions were evident during the exam. IMPRESSIONS: 1. Mild presbyesophagus with incomplete stripping of esophageal bolus in the horizontal drinking posi tion.
== END | disposition home or self-care (01) ==
LOC: RADUSWWP 08:15
PROVIDERS: ATTEND Surgery Plastic and Reconstructive Surgery
DX: K22.8 Other specified diseases of esophagus (principal)
CPT/HCPCS: 49424; 74220

== ENCOUNTER 2019-01-31 09:27 | Day surgery (SDC) | payer MEDICARE ==
--- NOTE | 2019-01-31 07:49 | P.GSHP ---
History of Present Illness H&P Date: 01/31/19 CHIEF COMPLAINT: GERD HISTORY OF PRESENT ILLNESS: The patient is a 63-year-old female who presents reports gastroesophageal reflux disease. Upper endoscopy was offered for further evaluation and management. PAST MEDICAL HISTORY: Please see list. PAST SURGICAL HISTORY: Please see list. MEDICATIONS: Please see list. ALLERGIES: Please see list. SOCIAL HISTORY: No illicit drug use FAMILY HISTORY: No reports of Crohn disease or ulcerative colitis. REVIEW OF ORGAN SYSTEMS: CONSTITUTIONAL: No reports of fevers or chills. GI: Denies any blood in stools or constipation. PHYSICAL EXAM: VITAL SIGNS: Stable GENERAL: Well-developed and pleasant in no acute distress. HEENT: No scleral icterus. Extraocular movements grossly intact. Moist buccal mucosa. NECK: Supple without lymphadenopathy. CHEST: Unlabored respirations. Equal bilateral excursions. CARDIOVASCULAR: Regular rate and rhythm. Distal 2+ pulses. ABDOMEN: Soft, nondistended. MUSCULOSKELETAL: No clubbing, cyanosis, or edema. ASSESSMENT: 1. Gastroesophageal reflux disease PLAN: 1. Recommend proceeding with an upper endoscopy Past Medical History Past Medical History: Asthma, Hypertension Additional Past Medical History / Comment(s): NAUSEATED FREQUENTLY, PLUS VOMITING History of Any Multi-Drug Resistant Organisms: None Reported Past Surgical History: Appendectomy, Back Surgery, Cholecystectomy, Hysterectomy, Tonsillectomy Additional Past Surgical History / Comment(s): Hx [address] surgery [address]. Jones. Low back surgery [id number] elsewhere. Hysterectomy at age 22 then at age 36 bilateral oophorectomy d/t ovarian CA-had some chemotherapy. Lap cholectomy 2011 Dr. Landaverde. Past Anesthesia/Blood Transfusion Reactions: No Reported Reaction Past Psychological History: Depression Smoking Status: Never smoker Past Alcohol Use History: None Reported Past Drug Use History: None Reported - Past Family History Father Family Medical History: No Reported History Additional Family Medical History / Comment(s): Father at age 94 of "old age" Mother Family Medical History: Diabetes Mellitus Additional Family Medical History / Comment(s): Mother at 74yrs of pancreatic CA. Medications and Allergies Home Medications Medication Instructions Recorded Confirmed Type Albuterol Inhaler [Ventolin Hfa 2 puff INHALATION RT-Q6H PRN 01/09/14 01/30/19 History Inhaler] FLUoxetine HCL [PROzac] 20 mg PO TID 01/09/14 01/30/19 History Fluticasone/Salmeterol [Advair 1 puff INHALATION RT-BID 01/09/14 01/30/19 History 250-50 Diskus] Zolpidem [Ambien] 10 mg PO HS PRN 01/09/14 01/30/19 History Atorvastatin [Lipitor] 40 mg PO QAM 11/08/18 01/30/19 History Losartan/Hydrochlorothiazide 1 tab PO QAM 11/08/18 01/30/19 History [Losartan-Hctz 100-25 mg Tab] Allergies Allergy/AdvReac Type Severity Reaction Status Date / Time No Known Allergies Allergy Verified 01/30/19 08:21
[~2019-01-31 09:27] MED LIST: LACTATED RINGERS 1,000 ML IV SCH; LIDOCAINE 1% 20 ML VIAL (10MG/ML) FOR IV START INTRADERMA PRN
[2019-01-31 09:56] VITALS: TEMP 98.1
[2019-01-31] MEDS ORDERED: PROPOFOL 10 MG/ML 20 ML VIAL IV ONE (10:26)
--- NOTE | 2019-01-31 10:39 | P.PCN ---
Date of Procedure: 01/31/19 Description of Procedure: PREOPERATIVE DIAGNOSIS: Gastroesophageal reflux disease. Atypical chest pain POSTOPERATIVE DIAGNOSIS: Gastritis. Gastroesophageal reflux disease. Atypical chest pain OPERATION: Esophagogastroduodenoscopy with biopsies along antrum. SURGEON: Carmela Landaverde MD ANESTHESIA: MAC. INDICATIONS: The patient is a 63-year-old female who presents with a history of reflux disease. Benefits and risks of the procedure were described. Informed consent was obtained. DESCRIPTION: The patient was brought into the endoscopy suite and laid in the left lateral decubitus position. An Olympus gastroscope was passed along the posterior oropharynx down to the distal esophagus where the squamocolumnar junction was encountered at 37 cm from the incisors. The stomach was entered and no bile reflux was found. Additional findings are listed below. Biopsies with cold forceps were obtained of the antrum. The first through third portion of the duodenum was examined and unremarkable. Retroflexion of the scope confirmed Hill grade 2 lower esophageal valve. The squamocolumnar junction demonstrated LA grade B erosive esophagitis. The stomach was desufflated. The patient tolerated the procedure well. FINDINGS: Squamocolumnar junction 37 cm from the incisors. Diaphragmatic hiatus at 38 cm. Hiatal hernia, 1 cm Hill grade 2 lower esophageal valve. LA grade B erosive esophagitis. No active duodenitis. RECOMMENDATIONS: Upper endoscopy as needed. Plan - Discharge Summary Discharge Rx Participant: No New Discharge Prescriptions: No Action Albuterol Inhaler [Ventolin Hfa Inhaler] 2 puff INHALATION RT-Q6H PRN PRN Reason: Shortness Of Breath Zolpidem [Ambien] 10 mg PO HS PRN PRN Reason: Insomnia FLUoxetine HCL [PROzac] 20 mg PO TID Fluticasone/Salmeterol [Advair 250-50 Diskus] 1 puff INHALATION RT-BID Atorvastatin [Lipitor] 40 mg PO QAM Losartan/Hydrochlorothiazide [Losartan-Hctz 100-25 mg Tab] 1 tab PO QAM Discharge Medication List Albuterol Inhaler [Ventolin Hfa Inhaler] 2 puff INHALATION RT-Q6H PRN 01/09/14 [History] FLUoxetine HCL [PROzac] 20 mg PO TID 01/09/14 [History] Fluticasone/Salmeterol [Advair 250-50 Diskus] 1 puff INHALATION RT-BID 01/09/14 [History] Zolpidem [Ambien] 10 mg PO HS PRN 01/09/14 [History] Atorvastatin [Lipitor] 40 mg PO QAM 11/08/18 [History] Losartan/Hydrochlorothiazide [Losartan-Hctz 100-25 mg Tab] 1 tab PO QAM 11/08/18 [History] Follow up Appointment(s)/Referral(s): Carmela Landaverde MD [STAFF PHYSICIAN] - 02/08/19 Patient Instructions/Handouts: Gastroesophageal Reflux Disease (DC) Discharge Disposition: HOME SELF-CARE
[2019-01-31 10:56] VITALS: BP 150/97; PULSE 83; RESP 16
== END 2019-01-31 11:37 | disposition home or self-care (01) ==
LOC: ORWHC2ENDO 09:27
PROVIDERS: ATTEND Surgery Plastic and Reconstructive Surgery
DX: K29.50 Unspecified chronic gastritis without bleeding (principal); K22.10 Ulcer of esophagus without bleeding; K44.9 Diaphragmatic hernia without obstruction or gangrene; I10 Essential (primary) hypertension; J45.909 Unspecified asthma, uncomplicated; Z90.49 Acquired absence of other specified parts of digestive tract; Z90.710 Acquired absence of both cervix and uterus; Z90.722 Acquired absence of ovaries, bilateral; Z85.43 Personal history of malignant neoplasm of ovary; F32.9 Major depressive disorder, single episode, unspecified; Z83.3 Family history of diabetes mellitus; Z80.0 Family history of malignant neoplasm of digestive organs; Z97.2 Presence of dental prosthetic device (complete) (partial); Z79.51 Long term (current) use of inhaled steroids; Z79.899 Other long term (current) drug therapy
CPT/HCPCS: 88305; 43239; J2704

== ENCOUNTER → 2020-02-25 | Outpatient (CLI) | payer MEDICARE | END | disposition home or self-care (01) | LOC: LABPAT 09:36 | PROVIDERS: ATTEND Orthopaedic Surgery | DX: Z22.322 Carrier or suspected carrier of Methicillin resistant Staphylococcus aureus (principal); M16.12 Unilateral primary osteoarthritis, left hip | CPT/HCPCS: 86850; 86900; 86901; 87070 ==

== ENCOUNTER 2020-02-29 06:07 | Day surgery (SDC) | payer MEDICARE ==
[2020-02-27 13:00] VITALS: BMI 31.6
[~2020-02-29 06:07] MED LIST changes: +ALPRAZolam 0.25 MG TAB PO PRN; +ALPRAZolam 0.5 MG TAB PO PRN; +ASPIRIN 325 MG TAB PO STA; +ATORVASTATIN 80 MG TAB PO STA; -LACTATED RINGERS 1,000 ML IV SCH; -LIDOCAINE 1% 20 ML VIAL (10MG/ML) FOR IV START INTRADERMA PRN; +NITROGLYCERIN SL TABS 0.4 MG TAB SUBLINGUAL PRN; +SODIUM CHLORIDE 0.9% 1,000 ML in EMPTY BAG 1 BAG IV ONE
[2020-02-29 06:40] LABS: Basophils # (A) 0.1 k/uL (0-0.2); Basophils % (A) 1 %; Eosinophils # (A) 0.3 k/uL (0-0.7); Eosinophils % (A) 3 %; HCT 42.6 % (34.0-46.0); HGB 13.5 gm/dL (11.4-16.0); Lymphocytes # (A) 3.2 k/uL (1.0-4.8); Lymphocytes % (A) 34 %; MCH 31.1 pg (25.0-35.0); MCHC 31.8 g/dL (31.0-37.0); MCV 97.9 fL (80.0-100.0); Mean Platelet Volume 6.5; Monocytes # (A) 0.3 k/uL (0-1.0); Monocytes % (A) 3 %; Neutrophils # (A) 5.4 k/uL (1.3-7.7); Neutrophils % (A) 57 %; Platelet Count 455 k/uL (150-450); RBC 4.35 m/uL (3.80-5.40); WBC 9.4 k/uL (3.8-10.6)
[2020-02-29] MEDS ORDERED: SODIUM CHLORIDE 0.9% 1,000 ML IV ONE (06:45)
[2020-02-29 06:51] VITALS: RESP 16; TEMP 98.4
[2020-02-29] MEDS: MIDAZOLAM 2 MG/2 ML VIAL IV ONE ×2 (07:45→07:58)
[2020-02-29] MEDS ORDERED: fentaNYL (PF) 50 MCG/ML 2 ML AMP IV ONE (07:45)
[2020-02-29] MEDS ORDERED: LIDOCAINE 1% INJ 10MG/ML (20 ML MDV) SQ ONE (07:46)
[2020-02-29] MEDS ORDERED: HEPARIN SODIUM 1,000 UN/ML (10ML VL) IV ONE (07:58)
[2020-02-29] MEDS ORDERED: IOPAMIDOL-370 125ML BTL INJ ONE (08:13)
[2020-02-29] MEDS ORDERED: RX INFO: IV CONTRAST WAS GIVEN 1 EACH MISC MISCELLANE PRN (08:26)
[2020-02-29 08:27] LABS: Potassium 3.6 mmol/L (3.5-5.1)
[2020-02-29] MEDS ORDERED: SODIUM CHLORIDE 0.9% 1,000 ML IV SCH (08:30)
--- NOTE | 2020-02-29 08:35 | P.CARDCATH ---
Date of Procedure: 02/29/20 Preoperative Diagnosis: Positive stress test, preoperative clearance Postoperative Diagnosis: Mild diffuse disease involving the distal circumflex. Rest of the coronary system is free of any significant occlusive disease Procedure(s) Performed: Left heart catheterization with selective coronary arteriography without left ventriculography Description of Procedure: HISTORY: This is a 64-year-old female with history of hypertension, hypercholesterolemia and previous history of smoking who was referred to our office for cardiac evaluation before hip surgery. In a stress test showed reversible ischemia involving the inferior wall. Patient is advised to have a cardiac catheterization for definitive diagnosis. CONSENT:I have discussed the risks, benefits and alternative therapies for the above-mentioned procedure and for both sedation/analgesia as well as necessary blood product administration, if indicated, as they pertain to this patient. The patient has indicated understanding and acceptance of the risks and proce dures discussed. PROCEDURE: Patient was brought to the lab in a fasting state. Patient was given some IV sedation. The right wrist is infiltrated with lidocaine and right radial artery was entered using Seldinger technique. A 6-Anguillan catheter was left in place and selective coronary arteriography was performed. Patient tolerated the procedure well. TR band was applied for hemostasis. No immediate complications were noted and patient was transferred to [facility] in a stable condition Conscious Sedation: Versed 1mg Fentanyl 25 g Duration 25minutes HEMODYNAMICS: Aortic pressure is 150/70. Left ventricle end-diastolic pressure is about 16. No gradient across the aortic valve SELECTIVE CORONARY ARTERIOGRAPHY: LEFT MAIN: Long and free of occlusive disease THE LEFT ANTERIOR DESCENDING CORONARY ARTERY:. This is a good caliber vessel giving rise to good-sized diagonal and septal branches. LAD and branches are free of occlusive disease THE LEFT CIRCUMFLEX AND IS CORONARY ARTERY:. This is a fair caliber vessel giving rise good-sized OM branch. The distal circumflex has diffuse disease involving the small PLV branches. Not amenable for any intervention THE RIGHT CORONARY ARTERY:. This is a good caliber vessel giving rise good-sized PDA and PLV. This is a dominant in distribution. Free of any significant occlusive disease LEFT VENTRICULOGRAPHY:. Performed FINAL IMPRESSION:. This is involving the distal circumflex. Rest of the coronary system is free of occlusive disease. The distal circumflex is small in caliber PLAN: Medical therapy and risk factor modification. Patient is cleared for hip surgery with about average risk PROGNOSIS: Fair
[2020-02-29 17:18] VITALS: BP 133/63; PULSE 72
== END 2020-02-29 13:37 | disposition home or self-care (01) ==
LOC: CATHCVL 06:07
PROVIDERS: ATTEND Internal Medicine Cardiovascular Disease
DX: I25.10 Atherosclerotic heart disease of native coronary artery without angina pectoris (principal); R94.39 Abnormal result of other cardiovascular function study; I10 Essential (primary) hypertension; E78.00 Pure hypercholesterolemia, unspecified; E78.5 Hyperlipidemia, unspecified; Z87.891 Personal history of nicotine dependence; Z79.899 Other long term (current) drug therapy; Z79.51 Long term (current) use of inhaled steroids; Z79.1 Long term (current) use of non-steroidal anti-inflammatories (NSAID)
CPT/HCPCS: 93458; 80048; 85025; C1769; C1894; J2250; J2001; J3010; J1644; Q9967

== ENCOUNTER 2020-03-03 08:39 | Day surgery (SDC) | payer MEDICARE ==
[2020-02-29 12:16] VITALS: BMI 31.6
--- NOTE | 2020-03-02 11:22 | HP ---
HISTORY AND PHYSICAL REASON FOR ADMISSION: Surgery 03/03/2020. HISTORY OF PRESENT ILLNESS: Penelope Waller is a 64-year-old patient who was seen with symptomatic advanced left hip osteoarthritis. We discussed treatment options. She elected to proceed with direct anterior left total hip arthroplasty. Consent was obtained. Medical clearance was provided by Dr. Ace. Cardiac clearance by Dr. Weir. PAST MEDICAL HISTORY: Hypertension, hyperlipidemia. PAST SURGICAL HISTORY: Hysterectomy, lumbar spine fusion. MEDICATIONS: Advair, losartan, Ventolin. SOCIAL HISTORY: She denies tobacco use. PHYSICAL EXAMINATION: Evaluation of the left hip: There is diffuse tenderness. Limited range of motion with severe pain. Positive hip impingement sign. Straight leg raise negative. Distal neurovascular exam intact RADIOGRAPHS: X-rays of the left hip reveals advanced severe osteoarthritic changes. IMPRESSION: 1. Left hip osteoarthritis. 2. Hypertension. 3. Hyperlipidemia. 4. Asthma. PLAN: Direct anterior left total hip arthroplasty. Surgery 03/03/2020. MMODL / IJN: [id number] /
[~2020-03-03 08:39] MED LIST changes: +ACETAMINOPHEN TAB 500 MG TAB PO ONE; -ALPRAZolam 0.25 MG TAB PO PRN; -ALPRAZolam 0.5 MG TAB PO PRN; -ASPIRIN 325 MG TAB PO STA; -ATORVASTATIN 80 MG TAB PO STA; +DEXAMETHASONE SOD PHOSPHATE 4 MG/ML 1 ML VIAL IV ONE; +MELOXICAM 7.5 MG TAB PO ONE; +MIDAZOLAM 2 MG/2 ML VIAL IV PRN; -NITROGLYCERIN SL TABS 0.4 MG TAB SUBLINGUAL PRN; +ONDANSETRON 4 MG/2 ML VIAL IVP ONE; +ROPIVACAINE 246.25 MG, EPINEPHrine 0.5 MG, KETOROLAC 30 MG, cloNIDine HCL/PF 80 MCG, WA... MISCELLANE ONE; -SODIUM CHLORIDE 0.9% 1,000 ML in EMPTY BAG 1 BAG IV ONE; +TRANEXAMIC ACID 1,000 MG in SODIUM CHLORIDE 0.9% 100 ML IVPB ONE
[2020-03-03] MEDS: LACTATED RINGERS 1,000 ML IV SCH ×3 (09:17→22:00)
[2020-03-03] MEDS ORDERED: ceFAZolin 1,000 MG in SODIUM CHLORIDE 0.9% 1,000 ML IRRIGATION ONE (10:28)
[2020-03-03] MEDS ORDERED: TRANEXAMIC ACID 1,000 MG/10 ML VIAL ONE (10:57)
[2020-03-03] MEDS ORDERED: SODIUM CHLORIDE 0.9% 100 ML BAG ONE (10:57)
[2020-03-03] MEDS ORDERED: KETAMINE 10 MG/ML 20 ML VIAL ONE (10:57)
[2020-03-03] MEDS ORDERED: PROPOFOL 10 MG/ML 20 ML VIAL IV ONE (10:57)
[2020-03-03] MEDS ORDERED: WATER FOR INJECTION, STERILE 10 ML VIAL IV ONE (10:57)
[2020-03-03] MEDS ORDERED: fentaNYL (PF) 50 MCG/ML 2 ML AMP ONE (10:57)
[2020-03-03] MEDS ORDERED: LIDOCAINE 1% INJ 10MG/ML (20 ML MDV) ONE (10:57)
[2020-03-03] MEDS ORDERED: PHENYLEPHRINE-0.9% NACL SYG 1 MG/10 ML SYRINGE ONE (10:57)
[2020-03-03] MEDS ORDERED: MIDAZOLAM 2 MG/2 ML VIAL ONE (10:57)
--- NOTE | 2020-03-03 11:43 | FL ---
Fluoroscopy History: LT HIP ARTHROPLASTY 21 SEC FL, 1 FILM
[2020-03-03] MEDS ORDERED: NALOXONE 0.4 MG/ML 1 ML VIAL IV PRN (11:50)
[2020-03-03] MEDS ORDERED: ONDANSETRON 4 MG/2 ML VIAL IVP PRN (11:50)
[2020-03-03] MEDS ORDERED: HYDROmorphone 0.5 MG/0.5 ML SYRINGE IVP PRN ×2 (11:50)
[2020-03-03] MEDS ORDERED: HYDROcodone/APAP 5-325MG 1 EACH TAB PO PRN (11:50)
--- NOTE | 2020-03-03 11:50 | P.OP ---
Date of Procedure: 03/03/20 Preoperative Diagnosis: Left hip osteoarthritis Postoperative Diagnosis: Left hip osteoarthritis Procedure(s) Performed: Direct anterior left total hip arthroplasty Implants: 1. Depuy Corail WONG-coated standard no collar KA size 13 press-fit femoral stem 2. Depuy pinnacle multi hole 56 mm press-fit acetabular shell 3. Depuy pinnacle polyethylene acetabular liner +4 neutral 36 mm ID 56 mm OD 4. Biolox delta ceramic femoral head +12 36 mm Anesthesia: local, spinal Surgeon: Tunde Fulton Product Scientist #1: Adolfo Hahn Estimated Blood Loss (ml): 90 Pathology: other (Femoral head) Condition: stable Disposition: PACU Indications for Procedure: 64-year-old patient seen with severe symptomatic left hip osteoarthritis. After treatment options were discussed, she elected to proceed with total hip arthroplasty. Operative Findings: See description of procedure Description of Procedure: The patient was taken to the operative suite. Patient underwent a [] anesthetic by the department of anesthesia. Patient was then transferred to the Gunpowder table. Patient was given preoperative IV antibiotics and TXA. Both lower extremities were placed in standard leg spars. The hip was then prepped and draped in the normal sterile orthopedic fashion. A standard anterior incision was made beginning 3 cm lateral and 1 cm distal to the ASIS extending 10 cm. Dissection was then carried down through the subcutaneous soft tissues down to the fascia overlying the tensor fascia jose c. An incision was now made through the fascia. Careful dissection was taken down exposing the tensor fascia jose c muscle. A Cobra retractor was now placed along the medial femoral neck and a second one along the lateral femoral neck. The venous circumflex vessels were now identified, cauterized and clipped. We identified the anterior hip capsule. An incision was made through the hip capsule along the lateral border. I performed a partial anterior capsulectomy. Retractors were now placed around the femoral neck itself. A femoral neck cut was now made with a sagittal saw. It was completed with an osteotome at the lateral neck area. The femoral head was now removed without difficulty. The extremity was now rotated to 45 of external rotation. It was locked in position. Residual labrum was now debrided out. Serial reaming was performed of the acetabulum while Basilio CLARKE assisted holding an anterior retractor for exposure. I did note significant loss of the anterior column secondary to her severe osteoarthritis. Once we reached the appropriate size and a trial was position and fit nicely. The appropriate size was now chosen opened and made available. It was introduced into the acetabulum without difficulty. The C-arm/fluoroscopy was now brought into the operative field. We made sure we had a true AP pelvic view. We now under direct C-arm/fluoroscopy introduced into the acetabular component with appropriate version and inclination. I held the cup in appropriate position well Basilio CLARKE used a mallet to seat the acetabular component. I noted the component now to be well seated and stable. I decided to introduce screws for extra stability given the bone loss in the anterior column. Drill holes were made in 3 screws were inserted all having good bite and purchase. Acetabular cup introduce her was removed. The C-arm was pulled back. An appropriate liner was introduced and clicked into position. It was felt to be stable. At this point retractors were removed. The extremity was now placed into 120 external rotation with no traction. The leg was now dropped to the ground and adducted. Appropriate retractors were now positioned along the proximal femur. We also placed our femoral look into position. Additional capsular releasing was performed to gain access to the proximal femur. We now used a box osteotome. A canal finder was now utilized. Serial broaching was now performed with the assistance of Basilio CLARKE tapping the broaches down with a mallet while held the broach in appropriate rotation and position. This was done until we reached the appropriate size with good overall rotational stability. Appropri ate calcar planing was performed. A trial head/neck was placed into position. The hip was now reduced. The C-arm/fluoroscopy was brought back into the operative field. IP an AP pelvis to ascertain leg lengths and then looked at the trial components which appeared well seated. The C-arm/fluoroscopy was pulled back. Retractors were repositioned and the hip was dislocated. The leg was again taken down to the ground and adducted. Appropriate retractors were repositioned as well as the femoral hook. All trial components were removed. The femoral implant was opened along with the femoral head. The femoral implant was introduced on the appropriate handle into our pre-broached area. I held the component position well Basilio CLARKE used a mallet to seat the femoral component. The femoral component was now noted to be well seated and stable.. The femoral head was introduced with good positioning and fixation noted. Retractors were now removed. The hip was now reduced. There appeared be good positioning of the hip confirmed on intraoperative fluoroscopy. Spot films were obtained to document this. A second gram of TXA was given. The deep and superficial soft tissues were infiltrated with local analgesic. Bipolar cautery had been utilized intermittently through the procedure for hemostasis. The wound was irrigated copiously with pulse lavage mechanical irrigation. The fascia was repaired with Vicryl suture. The subcutaneous soft tissues were repaired in layers with Vicryl suture. The skin was approximated with pernio/Dermabond. Sterile dressings were applied. Patient was then awakened, transferred to a bed and taken to recovery in stable condition. Basilio CLARKE assisted with the complex procedure.
[2020-03-03] MEDS ORDERED: LACTATED RINGERS 1,000 ML IV ONE ×2 (12:43)
[2020-03-03] MEDS: HYDROmorphone 0.5 MG/0.5 ML SYRINGE IVP PRN ×3 (14:37→18:23)
[2020-03-03] MEDS ORDERED: IBUPROFEN 600 MG TAB PO PRN (20:26)
[2020-03-03] MEDS ORDERED: ALBUTEROL NEBULIZED 2.5 MG/3 ML INHALATION PRN (20:26)
[2020-03-03] MEDS ORDERED: SENNOSIDES-DOCUSATE SODIUM 1 EACH TAB PO SCH (21:00)
[2020-03-03] MEDS ORDERED: ZOLPIDEM 10 MG TAB PO PRN (21:00)
[2020-03-03] MEDS: METOPROLOL TARTRATE 12.5 MG TAB PO SCH (22:04)
[2020-03-03] MEDS: LOSARTAN-HCTZ 50-12.5 MG 1 EACH TAB PO SCH (22:04)
[2020-03-03] MEDS: PANTOPRAZOLE 40 MG/10 ML VIAL IVP SCH (22:05)
[2020-03-03] MEDS: FLUoxetine HCL 20 MG CAP PO SCH (22:05)
[2020-03-03] MEDS: ATORVASTATIN 40 MG TAB PO SCH (22:50)
[2020-03-04] MEDS: HYDROmorphone 0.5 MG/0.5 ML SYRINGE IVP PRN ×2 (00:30→05:56)
[2020-03-04 07:13] VITALS: PULSE 82; RESP 18; TEMP 98.1
[2020-03-04] MEDS: LOSARTAN-HCTZ 50-12.5 MG 1 EACH TAB PO SCH (07:21)
[2020-03-04] MEDS ORDERED: SYMBICORT 80-4.5 MCG INHALER INHALATION SCH (08:00)
[2020-03-04 08:13] LABS: Basophils % (A) 0 %; Eosinophils % (A) 0 %; HCT 31.2 % (34.0-46.0); Hypochromasia Slight; Lymphocytes # (A) 1.6 k/uL (1.0-4.8); Lymphocytes % (A) 13 %; MCH 31.2 pg (25.0-35.0); MCHC 31.5 g/dL (31.0-37.0); MCV 99.1 fL (80.0-100.0); Mean Platelet Volume 6.7; Monocytes # (A) 0.5 k/uL (0-1.0); Monocytes % (A) 4 %; Neutrophils # (A) 9.5 k/uL (1.3-7.7); Neutrophils % (A) 82 %; Platelet Count 349 k/uL (150-450); RBC 3.15 m/uL (3.80-5.40); RDW 13.5 % (11.5-15.5); WBC 11.7 k/uL (3.8-10.6)
[2020-03-04 08:28] LABS: HGB 9.8 gm/dL (11.4-16.0)
[2020-03-04] MEDS ORDERED: MELOXICAM 7.5 MG TAB PO SCH (09:00)
[2020-03-04] MEDS ORDERED: ASPIRIN 81 MG PO SCH (09:00)
[2020-03-04] MEDS ORDERED: FAMOTIDINE 20 MG TAB PO SCH (09:00)
[2020-03-04] MEDS ORDERED: ENOXAPARIN 40 MG/0.4 ML SYRINGE SQ SCH (09:00)
[2020-03-04] MEDS: LACTATED RINGERS 1,000 ML IV SCH ×2 (09:04→13:28)
[2020-03-04] MEDS: METOPROLOL TARTRATE 12.5 MG TAB PO SCH (09:04)
--- NOTE | 2020-03-04 09:13 | CONS ---
CONSULTATION DATE OF CONSULTATION: 03/03/2020 REASON FOR CONSULTATION: Advice regarding hypertension, hyperlipidemia requested by Dr. Fulton. HISTORY OF PRESENT ILLNESS: This is a 58-year-old woman with a past history asthma, hypertension, history of DJD, history of appendectomy, back surgery, being followed Dr. Ace in the outpatient setting, underwent left total hip joint arthroplasty by Dr. Fulton. The patient has some postop nausea. Otherwise, there is no history of fever rigors no headache, loss of consciousness, chest pain, palpitation at this time. PAST MEDICAL HISTORY: History asthma, hypertension, hyperlipidemia, DJD. MEDICATIONS: 1. Prior to admission include Ambien 10 mg at bedtime. 2. Lopressor 12.5 mg. 3. Losartan. 5. Prozac. 6. Lipitor. 7. Aspirin. ALLERGIES: None. FAMILY HISTORY: No history of heart disease or strokes in the family. SOCIAL HISTORY: No history of smoking. No history of alcohol. REVIEW OF SYSTEMS: ENT: No diminished vision. Diminished hearing. RESPIRATORY SYSTEM: As mentioned earlier. GI: No nausea. : No dysuria. NERVOUS SYSTEM: No numbness, weakness. ALLERGY/IMMUNOLOGY: No asthma hay fever. CARDIOVASCULAR SYSTEM: As mentioned earlier. HEMATOLOGY/ONCOLOGY: No history of diabetes hypothyroidism. CONSTITUTIONAL: As mentioned earlier. DERMATOLOGY: Negative. RHEUMATOLOGY negative. PSYCHIATRY as mentioned earlier. PHYSICAL EXAMINATION: Alert, oriented, pulse is 95, is blood pressure 113/73, respiration 18, temperature 98.7. Pulse ox 95% on room air. HEENT: Conjunctivae normal. Oral mucosa moist. NECK: No jugular venous distention. No lymph node enlargement. CARDIOVASCULAR SYSTEM: S1, S2. RESPIRATORY SYSTEM: Breath sounds diminished in the bases, no rhonchi, no crackles. ABDOMEN: Soft, nontender. No mass palpable. LEGS: No edema, no swelling. NERVOUS SYSTEM: As mentioned earlier. Moves all 4 limbs. No focal motor or sensory deficits. SKIN: No rash. JOINTS: No active deforming arthropathy noted. EXTREMITIES: Examination of the legs status post left hip joint arthroplasty. LABS: The previous preop labs as the hematology, platelets 455 and the chemistry was within normal limits, unremarkable. ASSESSMENT: . 1. Status post left hip arthroplasty. 2. History of asthma. 3. Hypertension. 4. Hyperlipidemia. 5. History of degenerative joint disease. 6. History of recent stress test. 7. Next history of back surgery. 8. History of cholecystectomy. 9. Remote history of nicotine dependence. 10.Full code. 11. RECOMMENDATIONS: This 64-year-old woman who presented after surgery at this time I recommend to continue the current management and symptomatic treatment. The patient had a recent cardiac catheterization by Cardiology, which showed a showed small caliber, details of the circumflex. Medical treatment and risk factor modification has been recommended. I would recommend also symptomatic treatment for nausea. DVT prophylaxis. Incentive spirometry and resume the home medications and will recommend close followup with Dr. Ace after discharge. We will follow the patient closely with you. Thank you Dr. Fulton for letting us participate in this patient. MMODL / IJN: [id number] / MONI
[2020-03-04] MEDS: ATORVASTATIN 40 MG TAB PO SCH (09:17)
[2020-03-04] MEDS: PANTOPRAZOLE 40 MG/10 ML VIAL IVP SCH (09:17)
[2020-03-04] MEDS: FLUoxetine HCL 20 MG CAP PO SCH (09:18)
[2020-03-04] MEDS: HYDROcodone/APAP 5-325MG 1 EACH TAB PO PRN ×2 (10:36→15:01)
[2020-03-04] MEDS ORDERED: SODIUM CHLORIDE 0.9% 500 ML 500 ML IV ONE (11:49)
[2020-03-04 12:46] VITALS: BP 110/66
--- NOTE | 2020-03-04 13:49 | P.PN ---
Subjective Progress Note Date: 03/04/20 Principal diagnosis: Status post right anterior left total hip arthroplasty Patient is evaluated today at bedside, she's resting comfortably. Her pain is well-controlled. She has done very well with physical therapy. Her blood pressure has been running on the low side, internal medicine is following for this. She denies any headaches, lightheadedness, chest pain, shortness of breath, fever chills. Objective - Vital Signs Vital signs: Vital Signs Temp 98.1 F 03/04/20 07:00 Pulse 82 03/04/20 07:00 Resp 18 03/04/20 07:00 BP 110/66 03/04/20 12:45 Pulse Ox 96 03/04/20 07:00 Intake & Output 03/03/20 03/04/20 03/04/20 18:59 06:59 18:59 Intake Total 1001 Output Total 90 300 Balance 911 -300 Weight 84.4 kg Intake: IV 1001 Output: Emesis 300 Estimated Blood Loss 90 Other: # Voids 1 # Bowel Movements 0 - Exam Left lower extremity: Incision is clean, dry, and intact. The foam dressing is in good condition. There is minimal soft tissue swelling and ecchymosis surrounding the medial and lateral aspects of the incision. Calf is soft, no tenderness with palpation. Plantar flexion, dorsiflexion, EHL, FHL are intact. Sensory exam to light touch throughout the extremity is intact, dorsal pedis pulses 2+. - Labs CBC & Chem 7: 03/04/20 06:51 Labs: Abnormal Lab Results - Last 24 Hours (Table) 03/04/20 Range/Units 06:51 WBC 11.7 H (3.8-10.6) k/uL RBC 3.15 L (3.80-5.40) m/uL Hgb 9.8 L D (11.4-16.0) gm/dL Hct 31.2 L (34.0-46.0) % Neutrophils # 9.5 H (1.3-7.7) k/uL Assessment and Plan Assessment: Status post direct anterior left total hip arthroplasty Plan: Pain control, plan for discharge home on [place] 5 mg/325 mg DVT prophylaxis, aspirin 81 mg twice a day Wound care instructions were discussed Icing and elevating techniques discuss Home health care after discharge Medical recommendations Discharge planning: Patient's blood pressure has improved with fluid boluses given, her labs reveal no acute abnormalities. Plan for discharge home today Time with Patient: Less than 30
--- NOTE | 2020-03-04 13:52 | P.DS ---
Providers Date of admission: 03/03/2020 Expected date of discharge: 03/04/20 Attending physician: Tunde Fulton Consults: 03/03/20 11:50 Consult Physician Routine Consulting Provider: Gail Ace Reason/Comments: Medical management Do you want consulting provider notified?: Yes Primary care physician: Stated None Hospital Course: Date of admission: 03/03/2020 Date of discharge: 03/04/2020 Admission diagnosis: Status post direct anterior left total hip arthroplasty Discharge diagnosis: Same Attending physician: Dr. Fulton Surgical procedures: Direct anterior left total hip arthroplasty Brief history: Patient is a 64-year-old female with a history of progressive primary left hip osteoarthritis. At this point patient has failed conservative treatment measures and has opted to proceed with a elective direct anterior left total hip arthroplasty. Hospital course: Details of patient's surgery can be found in operative report. Patient tolerated the procedure well and was subsequently transported to orthopedic floor. Patient's orthopeidc and medical care was provided daily. Patient had daily laboratory tests performed for evaluation of overall blood counts. Patient had daily physical therapy to include strengthening range of motion as well as education with walker ambulation. Patient was treated with Lovenox for their postoperative DVT prophylaxis during their inpatient stay. Patient was noted to have a relatively uneventful postoperative course. Patient reported satisfactory pain control with oral pain medications by postoperative day 0. Patient showed satisfactory progress with physical therapy. Patient moved steadily through the program and had no difficulty meeting the goals by postoperative day 1. Given patient's otherwise satisfactory course and having met physical therapy goals, plan is to discharge patient home on postoperative day 1. Discharge condition/disposition: Patient will be discharged home in stable condition. Discharge medications: Instructions are given on resumption of patient's normal daily medications per primary care recommendation, in addition patient will be prescribed [place] 5 mg/325 mg, Colace 100 mg. Discharge instructions: 1. Wound care and infection precautions, keep incision dry and covered while showering, no lotions, creams, moisturizers. No soaking, tubs, pools, hottubs. Do not scrub over the incision. 2. Weight-bear as tolerated with walker / cane until follow-up. 3. Ice and elevate when necessary. Do not exceed 20 minutes per hour with ice pack. 4. Utilize compression sleeve until seen at first follow up appointment. 5. Visiting nursing care. 6. Home physical therapy. 7. Pain meds and anticoagulants per prescription. 8. Pain medication has potential to cause constipation. Increase oral fluid and fiber intake. Contact primary care provider if you have not had a bowel movement within 48 hours after discharge 9. No anti-inflammatory medication until discussed at first post operative visit, this including Motrin, Aleve, Mobic, Diclofenac. 10. Follow up in office at 2 weeks postop with Basilio Hahn PA-C 11. Follow up with your primary care doctor 7-10 days after discharge. 12. Contact [facility] with any questions, . Procedures: Direct anterior left total hip arthroplasty Patient Condition at Discharge: Good Plan - Discharge Summary Discharge Rx Participant: Yes New Discharge Prescriptions: New Aspirin [Adult Low Dose Aspirin EC] 81 mg PO BID #60 tablet. Docusate [Colace] 100 mg PO DAILY #30 capsule Hydrocodone/Acetaminophen [[place] 5-325] 1 - 2 each PO Q6HR PRN #40 tab PRN Reason: Pain Discontinued Aspirin 81 mg PO DAILY #90 chewable No Action Albuterol Inhaler (Mhu) [Ventolin Hfa Inhaler (Mhu)] 2 puff INHALATION RT-Q6H PRN PRN Reason: Shortness Of Breath Zolpidem [Ambien] 10 mg PO HS FLUoxetine HCL [PROzac] 20 mg PO TID Fluticasone/Salmeterol [Advair 250-50 Diskus] 1 puff INHALATION RT-BID Atorvastatin [Lipitor] 40 mg PO QAM Losartan/Hydrochlorothiazide [Losartan-Hctz 100-25 mg Tab] 1 tab PO QAM Ibuprofen [Motrin] 600 mg PO Q6HR PRN PRN Reason: Pain Metoprolol Tartrate [Lopressor] 12.5 mg PO BID #60 dose Discharge Medication List Albuterol Inhaler (Mhu) [Ventolin Hfa Inhaler (Mhu)] 2 puff INHALATION RT-Q6H PRN 01/09/14 [History] FLUoxetine HCL [PROzac] 20 mg PO TID 01/09/14 [History] Fluticasone/Salmeterol [Advair 250-50 Diskus] 1 puff INHALATION RT-BID 01/09/14 [History] Zolpidem [Ambien] 10 mg PO HS 01/09/14 [History] Atorvastatin [Lipitor] 40 mg PO QAM 11/08/18 [History] Losartan/Hydrochlorothiazide [Losartan-Hctz 100-25 mg Tab] 1 tab PO QAM 11/08/18 [History] Ibuprofen [Motrin] 600 mg PO Q6HR PRN 02/27/20 [History] Metoprolol Tartrate [Lopressor] 12.5 mg PO BID #60 dose 02/29/20 [Rx] Aspirin [Adult Low Dose Aspirin EC] 81 mg PO BID #60 tablet. 03/04/20 [Rx] Docusate [Colace] 100 mg PO DAILY #30 capsule 03/04/20 [Rx] Hydrocodone/Acetaminophen [[place] 5-325] 1 - 2 each PO Q6HR PRN #40 tab 03/04/20 [Rx] Follow up Appointment(s)/Referral(s): [facility], [NON-STAFF] - As Needed Adolfo Hahn PAC [PHYSICIAN DRY WALL INSTALLER] - 03/19/20 1:30 pm Patient Instructions/Handouts: Total Hip Replacement (DC) Activity/Diet/Wound Care/Special Instructions: Orthopedic Discharge Instructions: 1. Wound care and infection precautions, keep incision dry and covered while showering, no lotions, creams, moisturizers. No soaking, pools, hot tubs. Do not scrub over incision. 2. Weight-bear as tolerated with walker / cane until follow-up. 3. Ice and elevate when necessary. Do not exceed 20 minutes per hour with ice pack. 4. Utilize compression sleeve until seen at first follow up appointment. 5. Pain meds and anticoagulants per prescription. 6. Pain medication has potential to cause constipation. Increase oral fluid and fiber intake. Contact primary care provider if you have not had a bowel movement within 48 hours after discharge. 7. No anti-inflammatory medication until discussed at first post operative visit, this including Motrin, Aleve, Mobic, Diclofenac. 8. Follow up in office at 2 weeks postop with Basilio Hahn PA-C 9. Follow up with your primary care doctor 7-10 days after discharge. 10. Contact [facility] with any questions, . Discharge Disposition: HOME WITH HOME HEALTH SERVICES
--- NOTE | 2020-03-04 17:19 | PN ---
PROGRESS NOTE DATE OF SERVICE: 03/04/2020 This 64-year-old woman who was admitted after left hip arthroplasty is improving significantly. No chest pain. No palpitations. No fever. The patient also had some minimal labile relative hypotension, which is improved at this time. PHYSICAL EXAMINATION: Alert and oriented x3. Pulse 82, blood pressure 94/60, respiration 18, temperature 98.1, pulse ox 96% on room air. HEENT: Conjunctivae normal. NECK: No jugular venous distention. CARDIOVASCULAR SYSTEM: S1, S2 muffled. RESPIRATORY SYSTEM: Breath sounds diminished at the bases. No rhonchi. No crackles. ABDOMEN: Soft, non-tender. LEGS: No edema. No swelling. NERVOUS SYSTEM: No focal deficit. LABS: WBC 11.2, hemoglobin 9.8. ASSESSMENT: 1. Status post left hip arthroplasty. 2. History of asthma. 3. Relative hypotension. 4. Hypertension. 5. Hyperlipidemia. 6. History of degenerative joint disease. 7. History of recent stress test. 8. History of back surgery. 9. History of cholecystectomy. 10.Remote history of nicotine dependence. 11.FULL CODE. RECOMMENDATIONS AND DISCUSSION: I recommend to continue current medications, continue with the monitoring, symptomatic treatment. The patient took Lopressor last night which resulted in some mild hypotension. I would recommend monitoring blood pressure and closely follow with Dr. Ace regarding further management of hypertension. Also recommended STAT troponin and NT-Pro-BNP; both are within normal limits. Rest of the recommendations per Orthopedic Surgery, including DVT prophylaxis. Further recommendations to follow. MMODL / IJN: [id number] / MTDD
== END 2020-03-04 15:54 | disposition home health service (06) ==
LOC: OR 08:39 → 4SSUR 17:52 → OR 03-04 15:54
PROVIDERS: ATTEND Orthopaedic Surgery
DX: M16.12 Unilateral primary osteoarthritis, left hip (principal); I10 Essential (primary) hypertension; I95.9 Hypotension, unspecified; J45.909 Unspecified asthma, uncomplicated; E78.5 Hyperlipidemia, unspecified; Z90.49 Acquired absence of other specified parts of digestive tract; Z98.1 Arthrodesis status; Z87.891 Personal history of nicotine dependence; Z79.1 Long term (current) use of non-steroidal anti-inflammatories (NSAID); Z79.51 Long term (current) use of inhaled steroids; Z79.82 Long term (current) use of aspirin; Z79.899 Other long term (current) drug therapy; Z90.710 Acquired absence of both cervix and uterus
CPT/HCPCS: 94640; 97110; 97161; 83880; 84484; 85025; 88300; 73501; 27130; C1776; J2250; J0171; J1100; J0690 ×3; J2405; J2001; J1650; J3010; J1885; J2795; J2370; J2704; J0735; C9113 ×2; J1170 ×2; 86850; 86900; 86901

== ENCOUNTER 2020-04-15 00:20 | Inpatient (IN) | payer MEDICARE ==
--- NOTE | 2020-04-15 00:42 | ED ---
Lower Extremity Injury HPI - General Chief Complaint: Extremity Injury, Lower Stated Complaint: Hip Pain Time Seen by Provider: 04/15/20 00:27 Source: patient, EMS, RN notes reviewed, old records reviewed Mode of arrival: EMS Limitations: no limitations - History of Present Illness Initial Comments: This is a 65-year-old female with left hip replacement now left hip pain. Patient is about 5 weeks or so after hip replacement surgery. Patient's are treated here this hospital. Patient has severe pain in the left hip. Injuries occurred was doing exercises tonight. Patient states again the pain is severe presents by EMS. Patient denies any other trauma noted MD Complaint: hip injury (Left) -: hour(s) Injury: Hip: Left Type of Injury: inversion, eversion, hyperextension Place: home Severity: severe Severity scale (1-10): 9 Improves With: nothing Worsens With: nothing Context: other (Exercise) Associated Symptoms: snap/pop sensation Treatments Prior to Arrival: other (None) - Related Data Home Medications Medication Instructions Recorded Confirmed Albuterol Inhaler (Mhu) [Ventolin 2 puff INHALATION RT-Q6H PRN 01/09/14 02/29/20 Hfa Inhaler (Mhu)] FLUoxetine HCL [PROzac] 20 mg PO TID 01/09/14 02/29/20 Fluticasone/Salmeterol [Advair 1 puff INHALATION RT-BID 01/09/14 02/29/20 250-50 Diskus] Zolpidem [Ambien] 10 mg PO HS 01/09/14 02/29/20 Atorvastatin [Lipitor] 40 mg PO QAM 11/08/18 02/29/20 Losartan/Hydrochlorothiazide 1 tab PO QAM 11/08/18 02/29/20 [Losartan-Hctz 100-25 mg Tab] Ibuprofen [Motrin] 600 mg PO Q6HR PRN 02/27/20 02/29/20 Previous Rx's Medication Instructions Recorded Metoprolol Tartrate [Lopressor] 12.5 mg PO BID #60 dose 02/29/20 Aspirin [Adult Low Dose Aspirin EC] 81 mg PO BID #60 tablet. 03/04/20 Docusate [Colace] 100 mg PO DAILY #30 capsule 03/04/20 Hydrocodone/Acetaminophen [[place] 1 - 2 each PO Q6HR PRN #40 tab 03/04/20 5325] Allergies Allergy/AdvReac Type Severity Reaction Status Date / Time No Known Allergies Allergy Verified 04/15/20 00:28 Review of Systems ROS Statement: Those systems with pertinent positive or pertinent negative responses have been documented in the HPI. ROS Other: All systems not noted in ROS Statement are negative. Past Medical History Past Medical History: Asthma, Hyperlipidemia, Hypertension, Osteoarthritis (OA) Additional Past Medical History / Comment(s): scheduled for hip replacement on Tuesday-sent to spoilage worker by PCP because of abnormal EKG, recent stress test History of Any Multi-Drug Resistant Organisms: None Reported Past Surgical History: Appendectomy, Back Surgery, Cholecystectomy, Heart Catheterization, Hysterectomy, Tonsillectomy Additional Past Surgical History / Comment(s): Hx [address] Jones. Low back surgery, bilateral oophorectomy d/t ovarian cysts, cardiac cath. today Past Anesthesia/Blood Transfusion Reactions: No Reported Reaction Past Psychological History: No Psychological Hx Reported Smoking Status: Former smoker Past Alcohol Use History: None Reported Past Drug Use History: None Reported - Past Family History Father Family Medical History: No Reported History Additional Family Medical History / Comment(s): Father at age 94 of "old age" Mother Family Medical History: Diabetes Mellitus Additional Family Medical History / Comment(s): Mother at 74yrs of pancreatic CA. General Exam Limitations: no limitations General appearance: alert, in no apparent distress Head exam: Present: atraumatic, normocephalic, normal inspection Eye exam: Present: normal appearance, PERRL, EOMI. Absent: scleral icterus, conjunctival injection, periorbital swelling ENT exam: Present: normal exam, mucous membranes moist Neck exam: Present: normal inspection. Absent: tenderness, meningismus, lymphadenopathy Respiratory exam: Present: normal lung sounds bilaterally. Absent: respiratory distress, wheezes, rales, rhonchi, stridor Cardiovascular Exam: Present: regular rate, normal rhythm, normal heart sounds. Absent: systolic murmur, diastolic murmur, rubs, gallop, clicks GI/Abdominal exam: Present: soft, normal bowel sounds. Absent: distended, tenderness, guarding, rebound, rigid Extremities exam: Present: normal inspection, full ROM, normal capillary refill. Absent: tenderness, pedal edema, joint swelling, calf tenderness Left Hip exam: Present: tenderness, deformity, external rotation, shortening Back exam: Present: normal inspection Neurological exam: Present: alert, oriented X3, CN II-XII intact Psychiatric exam: Present: normal affect, normal mood Skin exam: Present: warm, dry, intact, normal color. Absent: rash Course Vital Signs 04/15/20 04/15/20 00:25 00:29 Temperature 98.6 F Pulse Rate 92 88 Respiratory 16 Rate Blood Pressure 170/95 O2 Sat by Pulse 97 Oximetry - Reevaluation(s) Reevaluation #1: 04/15/20 01:36 Record is reviewed Reevaluation #2: 04/15/20 01:36 Patient has adequate pain control Reevaluation #3: 04/15/20 01:36 Spoke patient regarding findings, questions have been answered - Consultations Consultation #1: Spoke with Dr. García for Dr. Fulton can admit this patient Medical Decision Making - Medical Decision Making 64 Disposition Clinical Impression: Hip dislocation, left Disposition: ADMITTED IP TO THIS [facility] Condition: Fair Is patient prescribed a controlled substance at d/c from ED?: No Referrals: Gail Ace MD [Primary Care Provider] - 1-2 days
--- NOTE | 2020-04-15 00:48 | XR ---
EXAM: XR Left Hip With Pelvis When Performed, 2 or 3 Views CLINICAL HISTORY: ITS.REASON XR Reason: pain TECHNIQUE: Two or three views of the left hip with pelvis when performed. COMPARISON: No previous study. FINDINGS: Bones/joints: There is superior dislocation of the femoral component of total left hip prosthesis relative to the left acetabular component. Angulated calcific densities are noted about the left hip fossa worrisome for small acute displaced fractures. Probable acute fracture of the greater trochanter of the left femur. Soft tissues: Unremarkable. IMPRESSION: 1. Cephalad dislocation of the femoral head component of the total left hip prosthesis relative to the left acetabular component. 2. Sharp edged ossific fragments are noted about the left hip fossa worrisome for acute fractures. 3. Probable nondisplaced fracture greater trochanter of the left femur. Clinical correlation is advised.
[2020-04-15] MEDS ORDERED: SODIUM CHLORIDE 0.9% 1,000 ML IV ONE (01:32)
[2020-04-15] MEDS ORDERED: HYDROmorphone 1 MG/ML 1 ML SYRINGE IVP STA ×2 (01:33)
[2020-04-15] MEDS ORDERED: SODIUM CHLORIDE 0.9% 1,000 ML IV STA (01:33)
[2020-04-15] MEDS ORDERED: ONDANSETRON 4 MG/2 ML VIAL IVP PRN ×2 (01:33→10:36)
[2020-04-15 01:57] LABS: Basophils % (A) 0 %; Eosinophils # (A) 0.3 k/uL (0-0.7); Eosinophils % (A) 3 %; HCT 32.8 % (34.0-46.0); HGB 10.5 gm/dL (11.4-16.0); Hypochromasia Moderate; Lymphocytes # (A) 1.4 k/uL (1.0-4.8); Lymphocytes % (A) 14 %; MCH 30.8 pg (25.0-35.0); MCHC 31.9 g/dL (31.0-37.0); MCV 96.6 fL (80.0-100.0); Mean Platelet Volume 6.7; Monocytes # (A) 0.3 k/uL (0-1.0); Monocytes % (A) 3 %; Neutrophils # (A) 7.9 k/uL (1.3-7.7); Neutrophils % (A) 79 %; Platelet Count 477 k/uL (150-450); RDW 14.3 % (11.5-15.5); WBC 10.1 k/uL (3.8-10.6)
[2020-04-15 02:14] LABS: Partial Thromboplastin Time 23.9 sec (22.0-30.0); Prothrombin Time 10.1 sec (9.0-12.0)
[2020-04-15 02:16] LABS: ALT 20 U/L (4-34); AST 54 U/L (14-36); African American GFR (CKD) >90 (>60 ml/min/1.73 sqM); Albumin 3.5 g/dL (3.5-5.0); Alkaline Phosphatase 145 U/L (38-126); Anion Gap 4 mmol/L; Blood Urea Nitrogen 15 mg/dL (7-17); Calcium 8.4 mg/dL (8.4-10.2); Carbon Dioxide 26 mmol/L (22-30); Chloride 108 mmol/L (98-107); Glucose 156 mg/dL (74-99); Non-African American GFR(CKD) 88 (>60 ml/min/1.73 sqM); Potassium 4.3 mmol/L (3.5-5.1); Sodium 138 mmol/L (137-145); Total Bilirubin 0.3 mg/dL (0.2-1.3); Total Protein 6.2 g/dL (6.3-8.2)
[2020-04-15] MEDS: HYDROmorphone 1 MG/ML 1 ML SYRINGE IVP PRN ×5 (05:10→19:36)
--- NOTE | 2020-04-15 07:36 | P.HPOR ---
History of Present Illness H&P Date: 04/15/20 Chief Complaint: Left hip pain The patient is a 65-year-old female who presents after undergoing undergoing left total hip arthroplasty utilizing a direct anterior approach [address] Fulton who presents with extreme pain that began last night after doing seated exercises. She has been ambulating with a cane. She's unable to bear weight at this point. She denies any fevers or chills. 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 Jones. Low back surgery, bilateral oophorectomy d/t ovarian cysts, cardiac cath. today Past Anesthesia/Blood Transfusion Reactions: No Reported Reaction Past Psychological History: No Psychological Hx Reported Smoking Status: Former smoker Past Alcohol Use History: None Reported Additional Past Alcohol Use History / Comment(s): quit smoking 20 yrs. ago, smoked >20 yrs. 1ppd Past Drug Use History: None Reported - Past Family History Father Family Medical History: No Reported History Additional Family Medical History / Comment(s): Father at age 94 of "old age" Mother Family Medical History: Diabetes Mellitus Additional Family Medical History / Comment(s): Mother at 74yrs of pancreatic CA. Medications and Allergies Home Medications Medication Instructions Recorded Confirmed Type FLUoxetine HCL [PROzac] 20 mg PO TID 01/09/14 04/15/20 History Zolpidem [Ambien] 10 mg PO HS 01/09/14 04/15/20 History Atorvastatin [Lipitor] 40 mg PO QAM 11/08/18 04/15/20 History Losartan/Hydrochlorothiazide 1 tab PO QAM 11/08/18 04/15/20 History [Losartan-Hctz 100-25 mg Tab] Ibuprofen [Motrin] 600 mg PO Q6HR PRN 02/27/20 04/15/20 History Aspirin [Adult Low Dose Aspirin EC] 81 mg PO BID #60 tablet. 03/04/20 04/15/20 Rx Albuterol Sulfate [Ventolin HFA] 1 - 2 puff INHALATION RT-Q6H PRN 04/15/20 1 06/16/19 History Fluticasone Propion/Salmeterol 1 puff INHALATION RT-BID 04/15/20 04/15/20 History [Wixela 250-50 Inhub] Metoprolol Tartrate [Lopressor] 25 mg PO DAILY 04/15/20 04/15/20 History Allergies Allergy/AdvReac Type Severity Reaction Status Date / Time No Known Allergies Allergy Verified 04/15/20 07:20 Physical Examination - Hip left Gait: other (Nonweightbearing) Tenderness with palpation: anterior Pain with motion: other (Pain with any attempted range of motion) Results Left hip incision healed, no warmth or erythema Shortening and slight external rotation left lower extremity Distal neurovascular exam intact left lower extremity Painless range of motion right hip Nontender about both knees and ankles and feet 2+ pedal pulses bilaterally Nontender lumbar spine No upper extremity tenderness - Labs Labs: Abnormal Lab Results - Last 24 Hours (Table) 04/15/20 04/15/20 Range/Units 01:33 01:33 RBC 3.40 L (3.80-5.40) m/uL Hgb 10.5 L (11.4-16.0) gm/dL Hct 32.8 L (34.0-46.0) % Plt Count 477 H (150-450) k/uL Neutrophils # 7.9 H (1.3-7.7) k/uL Chloride 108 H (98-107) mmol/L Glucose 156 H (74-99) mg/dL AST 54 H (14-36) U/L Alkaline Phosphatase 145 H (38-126) U/L Total Protein 6.2 L (6.3-8.2) g/dL H & H 04/15/20 Range/Units 01:33 Hgb 10.5 L (11.4-16.0) gm/dL Hct 32.8 L (34.0-46.0) % Coagulation 04/15/20 Range/Units 01:33 INR 1.0 (<1.2) Result Diagrams: 04/15/20 01:33 04/15/20 01:33 - Diagnostic results Hip x-ray: image reviewed (Left anterior hip dislocation with greater trochanteric fracture with some displacement) Assessment and Plan Assessment: Left anterior dislocation status post total hip arthroplasty Left greater trochanteric femur fracture Plan: I talked to the patient regarding her condition along with treatment options at this point. We'll plan to proceed with attempted closed reduction utilizing IV sedation and fluoroscopy. We will assess the stability/displacement of the fracture and femoral stem. Time with Patient: Less than 30
[2020-04-15] MEDS ORDERED: LACTATED RINGERS 1,000 ML IV ONE (10:09)
[2020-04-15] MEDS ORDERED: DEXAMETHASONE SOD PHOSPHATE 4 MG/ML 1 ML VIAL IVP ONE (10:10)
[2020-04-15] MEDS ORDERED: ONDANSETRON 4 MG/2 ML VIAL IVP ONE (10:10)
[2020-04-15] MEDS ORDERED: MIDAZOLAM 2 MG/2 ML VIAL ONE (10:14)
[2020-04-15] MEDS ORDERED: PROPOFOL 10 MG/ML 20 ML VIAL IV ONE (10:14)
[2020-04-15] MEDS ORDERED: fentaNYL (PF) 50 MCG/ML 2 ML AMP ONE (10:14)
[2020-04-15] MEDS ORDERED: KETAMINE 10 MG/ML 20 ML VIAL ONE (10:14)
[2020-04-15] MEDS ORDERED: ALBUTEROL HFA INHALER INHALATION PRN (10:34)
[2020-04-15] MEDS ORDERED: ZOLPIDEM 10 MG TAB PO PRN (10:34)
[2020-04-15] MEDS ORDERED: HYDROcodone/APAP 5-325MG 1 EACH TAB PO PRN (10:36)
[2020-04-15] MEDS ORDERED: NALOXONE 0.4 MG/ML 1 ML VIAL IV PRN (10:36)
[2020-04-15] MEDS ORDERED: HYDROmorphone 0.5 MG/0.5 ML SYRINGE IVP PRN (10:36)
--- NOTE | 2020-04-15 10:36 | P.OP ---
Date of Procedure: 04/15/20 Preoperative Diagnosis: Left anterior hip dislocation/greater trochanteric femur fracture Postoperative Diagnosis: Same Procedure(s) Performed: Closed reduction left hip dislocation Anesthesia: MAC Surgeon: Bola Wong Estimated Blood Loss (ml): 0 Pathology: none sent Condition: stable Disposition: PACU Indications for Procedure: The patient's a 65-year-old female who recently underwent a left total hip arthritis utilizing an anterior approach 5 weeks ago who presents after dislocating this last night while nonweightbearing. Upon evaluation she is noted of anterior dislocation of the hip with fracture of the greater trochanter. He discussion of the risks and benefits of attempted closed reduction was made with patient. She opted to proceed. Risks to include possible need for subsequent procedures as well as fracture displacement was discussed. Informed consent was obtained. Operative Findings: As below Description of Procedure: The patient was brought to the operating room, and after induction of IV sedati on was placed supine on the Rosaura table. After induction of IV sedation the left hip dislocation was then reduced with longitudinal traction and internal rotation. As was done with the aid of fluoroscopy. This is easily brought back into the joint. Increasing displacement the greater trochanteric femur fracture was noted. The hip was taken through range of motion and was felt to be stable in flexion and extension with internal and external rotation. She was then awoken from sedation and transferred to recovery room in good condition. Blood loss was 0. No complications were incurred.
[2020-04-15] MEDS ORDERED: METOPROLOL TARTRATE 25 MG TAB PO SCH (10:45)
--- NOTE | 2020-04-15 11:06 | FL ---
Fluoroscopy HISTORY: Closed reduction 3 seconds fluoroscopy time supplied to the referring clinician. 2 intraoperative C-arm images docume nt the procedure. See dictated report from orthopedic surgery.
--- NOTE | 2020-04-15 11:06 | XR ---
Limited left hip HISTORY: Closed reduction 2 intraoperative C-arm images document the procedure
--- NOTE | 2020-04-15 11:17 | XR ---
Limited left hip HISTORY: Post closed reduction Single frontal view of the left hip correlated to prior exam 04/15/2020 and earlier time Patient is status post reduction of patient's dislocated left hip arthroplasty. Greater trochanter fr acture is displaced. Ossific densities are present about the prosthesis possibly due to heterotopic n ew bone formation. Robert density is superimposed over the arthroplasty lateral aspect of the acetabul um which is indeterminate and may be due to a fracture. IMPRESSION: Interval reduction. Fracture of the greater trochanter is displaced. Difficult to exclude acetabular fracture as described. A Yellow level critical message alert has been initiated for Bola Wong via the [employer] Critical Results System on 04/15/2020 11:14 AM. This message alert has been sent to [employer]ola means the preferences provided by the clinician for the receipt of Radiology Critical Findings. Message I D [id number].
--- NOTE | 2020-04-15 12:46 | P.CONS ---
History of Present Illness - Reason for Consult Hypertension - History of Present Illness Patient is pleasant 65-year-old female came in the for antiarrhythmic dislocation of the left hip patient is status post left total hip arthroplasty about 5 weeks ago came came in with complaints of pain found to have antiarrhythmic dislocation as mentioned above. Patient denied any fever chills patient did undergo reduction and the patient is still having pain. Patient doesn't have a Walker catheter ration in any fever chills dysuria cough. Review of Systems REVIEW OF SYSTEMS: CONSTITUTIONAL: No fever, no malaise, no fatigue. HEENT: No recent visual problems or hearing problems. Denied any sore throat. CARDIOVASCULAR: No chest pain, orthopnea, PND, no palpitations, no syncope. PULMONARY: No shortness of breath, no cough, no hemoptysis. GASTROINTESTINAL: No diarrhea, no nausea, no vomiting, no abdominal pain. NEUROLOGICAL: No headaches, no weakness, no numbness. HEMATOLOGICAL: Denies any bleeding or petechiae. GENITOURINARY: Denies any burning micturition, frequency, or urgency. MUSCULOSKELETAL/RHEUMATOLOGICAL: As mentioned in HPI ENDOCRINE: Denies any polyuria or polydipsia. The rest of the 14-point review of systems is negative. Past Medical History Past Medical History: Asthma, Hyperlipidemia, Hypertension, Osteoarthritis (OA) Additional Past Medical History / Comment(s): scheduled for hip replacement on Tuesday-sent to rd scientist by PCP because of abnormal EKG, recent stress test History of Any Multi-Drug Resistant Organisms: None Reported Past Surgical History: Appendectomy, Back Surgery, Cholecystectomy, Heart Catheterization, Hysterectomy, Tonsillectomy Additional Past Surgical History / Comment(s): Hx [address] surgery [address] Dr[address] Jones. Low back surgery, bilateral oophorectomy d/t ovarian cysts, cardiac cath. today Past Anesthesia/Blood Transfusion Reactions: No Reported Reaction Past Psychological History: No Psychological Hx Reported Smoking Status: Former smoker Past Alcohol Use History: None Reported Additional Past Alcohol Use History / Comment(s): quit smoking 20 yrs. ago, smoked >20 yrs. 1ppd Past Drug Use History: None Reported - Past Family History Father Family Medical History: No Reported History Additional Family Medical History / Comment(s): Father at age 94 of "old age" Mother Family Medical History: Diabetes Mellitus Additional Family Medical History / Comment(s): Mother at 74yrs of pancreatic CA. Medications and Allergies Home Medications Medication Instructions Recorded Confirmed Type FLUoxetine HCL [PROzac] 20 mg PO TID 01/09/14 04/15/20 History Zolpidem [Ambien] 10 mg PO HS 01/09/14 04/15/20 History Atorvastatin [Lipitor] 40 mg PO QAM 11/08/18 04/15/20 History Losartan/Hydrochlorothiazide 1 tab PO QAM 11/08/18 04/15/20 History [Losartan-Hctz 100-25 mg Tab] Ibuprofen [Motrin] 600 mg PO Q6HR PRN 02/27/20 04/15/20 History Aspirin [Adult Low Dose Aspirin EC] 81 mg PO BID #60 tablet. 03/04/20 04/15/20 Rx Albuterol Sulfate [Ventolin HFA] 1 - 2 puff INHALATION RT-Q6H PRN 04/15/20 04/15/20 History Fluticasone Propion/Salmeterol 1 puff INHALATION RT-BID 04/15/20 04/15/20 History [Wixela 250-50 Inhub] Metoprolol Tartrate [Lopressor] 25 mg PO DAILY 04/15/20 04/15/20 History Allergies Allergy/AdvReac Type Severity Reaction Status Date / Time No Known Allergies Allergy Verified 04/15/20 10:08 Physical Exam Vitals: Vital Signs Temp Pulse Pulse Pulse Pulse Resp BP 04/15/20 11:15 93 16 04/15/20 11:03 94 14 04/15/20 10:45 90 14 04/15/20 10:38 97.3 F L 95 12 04/15/20 10:08 98.4 F 95 16 04/15/20 07:57 98.6 F 101 H 18 04/15/20 05:06 98.6 F 88 04/15/20 04:00 86 22 153/83 04/15/20 00:29 88 04/15/20 00:25 98.6 F 92 16 170/95 BP Pulse Ox 04/15/20 11:15 135/64 99 04/15/20 11:03 131/63 99 04/15/20 10:45 122/54 99 04/15/20 10:38 130/68 99 04/15/20 10:08 143/73 93 L 04/15/20 07:57 149/98 100 04/15/20 05:06 136/77 94 L 04/15/20 04:00 97 04/15/20 00:29 04/15/20 00:25 97 Intake and Output 04/14/20 04/15/20 04/15/20 22:59 06:59 14:59 Intake Total 150 Balance 150 Intake: IV 150 Other: Weight 88.133 kg 88.133 kg PHYSICAL EXAMINATION: GENERAL: She and is drowsy coming out of anesthesia, not in any acute distress. Well developed, well nourished. HEENT: Pupils are round and equally reacting to light. EOMI. No scleral icterus. No conjunctival pallor. Normocephalic, atraumatic. No pharyngeal erythema. No thyromegaly. CARDIOVASCULAR: S1 and S2 present. No murmurs, rubs, or gallops. PULMONARY: Chest is clear to auscultation, no wheezing or crackles. ABDOMEN: Soft, nontender, nondistended, normoactive bowel sounds. No palpable organomegaly. MUSCULOSKELETAL: deffered to ortho EXTREMITIES: No cyanosis, clubbing, or pedal edema. NEUROLOGICAL: Gross neurological examination did not reveal any focal deficits. SKIN: No rashes. Results CBC & Chem 7: 04/15/20 01:33 04/15/20 01:33 Labs: Abnormal Lab Results - Last 24 Hours (Table) 04/15/20 04/15/20 Range/Units 01:33 01:33 RBC 3.40 L (3.80-5.40) m/uL Hgb 10.5 L (11.4-16.0) gm/dL Hct 32.8 L (34.0-46.0) % Plt Count 477 H (150-450) k/uL Neutrophils # 7.9 H (1.3-7.7) k/uL Chloride 108 H (98-107) mmol/L Glucose 156 H (74-99) mg/dL AST 54 H (14-36) U/L Alkaline Phosphatase 145 H (38-126) U/L Total Protein 6.2 L (6.3-8.2) g/dL Assessment and Plan Plan: 7 hypertension: Patient will be resumed on her home medications at blood as her blood pressure is elevated will closely monitor the vitals. -Hyperlipidemia -Asthma without any acute exacerbation -Left hip anterior displacement: Management as per primary service due to prophylaxis and pain management as per primary service
[2020-04-15] MEDS ORDERED: FLUoxetine HCL 20 MG CAP PO SCH (16:00)
[2020-04-15 19:49] VITALS: BP 127/78; PULSE 83; RESP 20; TEMP 99.1
[2020-04-15] MEDS ORDERED: SYMBICORT 80-4.5 MCG INHALER INHALATION SCH (20:00)
[2020-04-15] MEDS ORDERED: ASPIRIN 81 MG PO SCH (21:00)
--- NOTE | 2020-04-16 07:37 | P.DS ---
Providers Date of admission: 04/15/20 01:32 Expected date of discharge: 04/15/20 Attending physician: Tunde Fulton Consults: 04/15/20 07:29 Consult Physician Routine Consulting Provider: Radha Lima Consult Reason/Comments: medical managment Do you want consulting provider notified?: Yes Primary care physician: Gail Ace Va Hospital Course: Date of admission: 04/14/2020 Date of discharge: 04/15/2020 Admission diagnosis: Left hip periprosthetic hip dislocation, left greater trochanteric femur fracture Discharge diagnosis: Status post closed reduction left periprosthetic hip dislocation, left greater trochanteric femur fracture Attending physician: Dr. Wong Surgical procedures: Closed reduction left periprosthetic hip dislocation Brief history: Patient is a 65-year-old female who is a patient of Dr. Fulton, she underwent a direct anterior left total hip arthroplasty on 03/03/2020. Patient had been doing very well up until 04/14/2020 when she was doing her exercises is sitting in a chair, she noted a loud popping noise and significant pain involving the left lower extremity. She was unable to weight- bear at that time, she reported to [facility] for further workup. It was determined that she had a dislocation of the left periprosthetic hip along with a fracture involving the left greater trochanter. Patient was evaluated by Dr. Wong who is the on-call physician, she was taken to the OR on 04/15/2020 for a closed reduction procedure. Hospital course: Details of patient's surgery can be found in operative report. Patient tolerated the procedure well and was subsequently transported to orthopedic floor. Patient's orthopeidc and medical care was provided daily. Patient had daily laboratory tests performed for evaluation of overall blood counts. Patient had daily physical therapy to include strengthening range of motion as well as education with walker ambulation. It was determined due to the severity of the greater trochanteric femur fracture and left hip hardware that a transfer to a tertiary care facility for workup and likely surgical intervention by a orthopedic trauma surgeon would be warranted. Transfer process was completed, proper paperwork was provided, patient was transferred to [facility]. Discharge condition/disposition: Patient will be transferred to [facility] Procedures: Closed reduction left periprosthetic hip dislocation Patient Condition at Discharge: Fair Plan - Discharge Summary New Discharge Prescriptions: No Action Zolpidem [Ambien] 10 mg PO HS FLUoxetine HCL [PROzac] 20 mg PO TID Atorvastatin [Lipitor] 40 mg PO QAM Losartan/Hydrochlorothiazide [Losartan-Hctz 100-25 mg Tab] 1 tab PO QAM Ibuprofen [Motrin] 600 mg PO Q6HR PRN PRN Reason: Pain Aspirin [Adult Low Dose Aspirin EC] 81 mg PO BID #60 tablet. Albuterol Sulfate [Ventolin HFA] 1 - 2 puff INHALATION RT-Q6H PRN PRN Reason: Shortness Of Breath Fluticasone Propion/Salmeterol [Wixela 250-50 Inhub] 1 puff INHALATION RT-BID Metoprolol Tartrate [Lopressor] 25 mg PO DAILY Discharge Medication List FLUoxetine HCL [PROzac] 20 mg PO TID 01/09/14 [History] Zolpidem [Ambien] 10 mg PO HS 01/09/14 [History] Atorvastatin [Lipitor] 40 mg PO QAM 11/08/18 [History] Losartan/Hydrochlorothiazide [Losartan-Hctz 100-25 mg Tab] 1 tab PO QAM 11/08/18 [History] Ibuprofen [Motrin] 600 mg PO Q6HR PRN 02/27/20 [History] Aspirin [Adult Low Dose Aspirin EC] 81 mg PO BID #60 tablet. 03/04/20 [Rx] Albuterol Sulfate [Ventolin HFA] 1 - 2 puff INHALATION RT-Q6H PRN 04/15/20 [History] Fluticasone Propion/Salmeterol [Wixela 250-50 Inhub] 1 puff INHALATION RT-BID 04/15/20 [History] Metoprolol Tartrate [Lopressor] 25 mg PO DAILY 04/15/20 [History] Follow up Appointment(s)/Referral(s): Gail Ace MD [Primary Care Provider] - 1-2 days Discharge Disposition: OTHER INSTITUTION NOT DEFINED
[2020-04-16] MEDS ORDERED: hydroCHLOROthiazide 25 MG TAB PO SCH (09:00)
[2020-04-16] MEDS ORDERED: ATORVASTATIN 40 MG TAB PO SCH (09:00)
[2020-04-16] MEDS ORDERED: LOSARTAN 50 MG TAB PO SCH (09:00)
--- NOTE | 2020-04-19 07:59 | CDI ---
Documentation Clarification Form Date: 04/19/20 From: Miriam Moreno Phone: If you have a question regarding this query, please contact Carol Haro at [phone] between 8am and 5pm. Admit Date: 04/15/2020 01:32:00 AM Patient Name: Penelope Waller Visit Number: [id number] Discharge Date: 04/15/2020 08:45:00 PM ATTENTION: The Clinical Documentation Specialists (CDI) and [facility] Coding Staff appreciate your assistance in clarifying documentation. Please respond to the clarification below the line at the bottom and electronically sign. The CDI & [facility] Coding staff will review the response and follow-up if needed. Please note: Queries are made part of the Legal Health Record. If you have any questions, please contact the author of this message via ITS. Dr. Bola Wong Patient has been diagnosed with a fracture in the greater trochanter of the left hip and left periprosthetic hip dislocation. History/Risk Factors: Left total hip replacement in February Clinical Indications: Pain in left hip X-Ray Results: Left Hip: Probably nondisplaced fracture greater tronchanter of the left femur. Repeat Left Hip: Fracture of the greater trochanter is displace. Difficult to exclude acetabular fracture as described. Treatment: Reduction of left hip dislocation. Transfer to tertiary facility for workup of fracture. In your professional opinion, please specify the following: Etiology of fracture: Traumatic Periprosthetic, around internal prosthetic joint Pathological (specify cause): Neoplastic disease Osteoporosis Other (please specify): Unable to determine _traumatic, periprosthetic MTDD
== END 2020-04-15 20:45 | disposition short-term general hospital (02) | DRG 559 ==
LOC: EC 00:20 → 4SSUR 01:32
PROVIDERS: ADMIT Orthopaedic Surgery; ATTEND Orthopaedic Surgery
PROC: 0SWBXJZ Revision of Synthetic Substitute in Left Hip Joint, External Approach (ICD-10-PCS; principal; 2020-04-15 08:35)
DX: T84.021A Dislocation of internal left hip prosthesis, initial encounter (principal); S72.112A Displaced fracture of greater trochanter of left femur, initial encounter for closed fracture; M97.02XA Periprosthetic fracture around internal prosthetic left hip joint, initial encounter; E78.5 Hyperlipidemia, unspecified; I10 Essential (primary) hypertension; J45.909 Unspecified asthma, uncomplicated; M19.90 Unspecified osteoarthritis, unspecified site; Z79.82 Long term (current) use of aspirin; Z79.899 Other long term (current) drug therapy; Z87.891 Personal history of nicotine dependence; Z90.710 Acquired absence of both cervix and uterus; Z90.49 Acquired absence of other specified parts of digestive tract; Z87.19 Personal history of other diseases of the digestive system; Z90.89 Acquired absence of other organs; Z87.898 Personal history of other specified conditions; Z90.722 Acquired absence of ovaries, bilateral; Z80.0 Family history of malignant neoplasm of digestive organs; Z83.3 Family history of diabetes mellitus; Y79.2 Prosthetic and other implants, materials and accessory orthopedic devices associated with adverse incidents; Y92.009 Unspecified place in unspecified non-institutional (private) residence as the place of occurrence of the external cause
CPT/HCPCS: 36415; 73501; 73502; 80053; 85025; 85610; 85730; 94640; 96374; 99285

== ENCOUNTER 2020-05-22 09:05 | Emergency (ER) | payer MEDICARE ==
[2020-05-22] MEDS ORDERED: HYDROmorphone 0.5 MG/0.5 ML SYRINGE IVP STA (09:14)
--- NOTE | 2020-05-22 09:42 | XR ---
EXAMINATION TYPE: AP pelvis and 2 views left hip DATE OF EXAM: 05/22/2020 COMPARISON: 04/15/2020 HISTORY: 65-year-old female with popping and pain FINDINGS: Posterior lumbar fusion hardware along with lateral osseous fusion changes. There seems to be bilater al L5-S1 assimilation joints. Mild degenerative change of the right hip. There is a left hip arthropl asty with revision femoral stem component and proximal cerclage wires. Mildly displaced greater troch anteric fracture fragment is noted. No acute periprosthetic fracture is seen. There is yolanda superior dislocation of the hip prosthesis. IMPRESSION: Left hip total arthroplasty with revision femoral stem component. Yolanda superior dislocation of the p rosthesis.
--- NOTE | 2020-05-22 09:44 | ED ---
Lower Extremity Injury HPI <Sly De - Last Filed: 05/22/20 11:52> - General Source: patient, EMS Mode of arrival: EMS Limitations: physical limitation <Levi Romero - Last Filed: 05/22/20 11:57> - General Chief Complaint: Extremity Injury, Lower Stated Complaint: dislocated hip Time Seen by Provider: 05/22/20 09:12 - History of Present Illness Initial Comments: This is a 65-year-old female presents emergency from via EMS chief complaint of possible left hip dislocation. Patient states she had surgery by Dr. Fulton in February. Patient had a hip dislocation and was sent down to Dr. Locke for revision. Patient states that she was standing up and states he felt a pop in instant pain to her left hip. Patient states feels exactly the same. Patient offers not complaints. (Levi Romero) - Related Data Home Medications Medication Instructions Recorded Confirmed FLUoxetine HCL [PROzac] 20 mg PO TID 01/09/14 05/22/20 Zolpidem [Ambien] 10 mg PO HS 01/09/14 05/22/20 Atorvastatin [Lipitor] 40 mg PO QAM 11/08/18 05/22/20 Losartan/Hydrochlorothiazide 1 tab PO QAM 11/08/18 05/22/20 [Losartan-Hctz 100-25 mg Tab] Ibuprofen [Motrin] 600 mg PO Q6HR PRN 02/27/20 05/22/20 Albuterol Sulfate [Ventolin HFA] 1 - 2 puff INHALATION RT-Q6H PRN 04/15/20 05/22/20 Fluticasone Propion/Salmeterol 1 puff INHALATION RT-BID 04/15/20 05/22/20 [Wixela 250-50 Inhub] Previous Rx's Medication Instructions Recorded Aspirin [Adult Low Dose Aspirin EC] 81 mg PO BID #60 tablet. 03/04/20 Allergies Allergy/AdvReac Type Severity Reaction Status Date / Time No Known Allergies Allergy Verified 05/22/20 09:38 Review of Systems ROS Other: All systems not noted in ROS Statement are negative. <Sly De - Last Filed: 05/22/20 11:52> ROS Other: All systems not noted in ROS Statement are negative. <Dedoe,Levi M - Last Filed: 05/22/20 11:57> ROS Statement: Those systems with pertinent positive or pertinent negative responses have been documented in the HPI. Past Medical History Past Medical History: Asthma, Hyperlipidemia, Hypertension, Osteoarthritis (OA) Additional Past Medical History / Comment(s): scheduled for hip replacement on Tuesday-sent to cash posting clerk by PCP because of abnormal EKG, recent stress test History of Any Multi-Drug Resistant Organisms: None Reported Past Surgical History: Appendectomy, Back Surgery, Cholecystectomy, Heart Catheterization, Hysterectomy, Tonsillectomy Additional Past Surgical History / Comment(s): Hx [address] surgery [address]. Jones. Low back surgery, bilateral oophorectomy d/t ovarian cysts, cardiac cath. today Past Anesthesia/Blood Transfusion Reactions: No Reported Reaction Past Psychological History: No Psychological Hx Reported Smoking Status: Former smoker Past Alcohol Use History: None Reported Past Drug Use History: None Reported - Past Family History Father Family Medical History: No Reported History Additional Family Medical History / Comment(s): Father at age 94 of "old age" Mother Family Medical History: Diabetes Mellitus Additional Family Medical History / Comment(s): Mother at 74yrs of pancreatic CA. <Levi Romero M - Last Filed: 05/22/20 11:57> General Exam Limitations: physical limitation General appearance: alert, in no apparent distress Head exam: Present: atraumatic, normocephalic, normal inspection Eye exam: Present: normal appearance, PERRL, EOMI. Absent: scleral icterus, conjunctival injection, periorbital swelling Respiratory exam: Present: normal lung sounds bilaterally. Absent: respiratory distress, wheezes, rales, rhonchi, stridor Cardiovascular Exam: Present: regular rate, normal rhythm, normal heart sounds. Absent: systolic murmur, diastolic murmur, rubs, gallop, clicks Extremities exam: Present: other (Shortening or external rotation on the left, neurovascular intact) <Levi Romero M - Last Filed: 05/22/20 11:57> Course Vital Signs 05/22/20 05/22/20 05/22/20 09:09 10:51 11:25 Temperature 98.2 F Pulse Rate 77 89 89 Respiratory 16 16 16 Rate Blood Pressure 134/80 116/68 138/73 O2 Sat by Pulse 98 99 97 Oximetry 05/22/20 05/22/20 05/22/20 11:30 11:35 11:40 Temperature Pulse Rate 86 80 85 Respiratory 16 16 16 Rate Blood Pressure 106/88 108/67 120/68 O2 Sat by Pulse 100 100 99 Oximetry Procedures - Procedural Sedation Procedural Sedation Start Time: 11:26 Procedural Sedation Stop Time: 12:50 Indications: fracture/dislocation reduction Mallampati Airway Score: 2 Preparation: monitor technician applied, pulse oximeter, supplemental O2 applied, suction/airway equipment at bedside IV Propofol Dose (mgs): 120 Complications: none Patient Tolerated Procedure: well <Sly De - Last Filed: 05/22/20 11:52> - Orthopedic Joint Reduction Joint #1 Consent Obtained: verbal consent, written consent Side: left Joint Reduction Location: hip Analgesia: procedural sedation Technique Used: traction/counter-traction Post-Reduction Neuro Exam: intact Post-Reduction Vascular Exam: intact Post Reduction X-Ray Obtained: Yes Post Reduction X-Ray Results: reduced Splint Applied: Yes Patient Tolerated Procedure: well, no complications <Levi Romero - Last Filed: 05/22/20 11:57> Medical Decision Making <Levi Romero - Last Filed: 05/22/20 11:57> - Medical Decision Making Case discussed with Brianne Hartmanomb orthopedics recommends patient be placed in an abduction pillow and will follow-up with Dr. Locke her surgeon. She is stable for discharge. (Levi Romero) Disposition <Sly De - Last Filed: 05/22/20 11:52> Is patient prescribed a controlled substance at d/c from ED?: No Time of Disposition: 11:57 <Levi Romero - Last Filed: 05/22/20 11:57> Clinical Impression: Hip dislocation, left Disposition: HOME SELF-CARE Condition: Stable Instructions (If sedation given, give patient instructions): Hip Dislocation (ED), Moderate Sedation (ED) Additional Instructions: Follow-up with Dr. Locke.Please return to the Emergency Department if symptoms worsen or any other concerns. Referrals: Gail Ace MD [Primary Care Provider] - 1-2 days Vinicius Locke DO [REFERRING] - 1-2 days
[2020-05-22 10:05] VITALS: TEMP 98.2
[2020-05-22] MEDS ORDERED: PROPOFOL 10 MG/ML 20 ML VIAL IV STA (10:14)
[2020-05-22] MEDS ORDERED: SODIUM CHLORIDE 0.9% 500 ML 500 ML IV STA (10:14)
[2020-05-22] MEDS ORDERED: ONDANSETRON 4 MG/2 ML VIAL IVP STA (10:17)
[2020-05-22] MEDS ORDERED: PROPOFOL 10 MG/ML 20 ML VIAL IV ONE (11:44)
--- NOTE | 2020-05-22 11:50 | XR ---
EXAMINATION TYPE: XR Hip Limited LT DATE OF EXAM: 05/22/2020 COMPARISON: Earlier today HISTORY: 65-year-old female Postreduction exam TECHNIQUE: Single AP view FINDINGS: Left total hip arthroplasty with revision femoral stem component redemonstrated. Interval satisfactor y reduction of the hip joint. The side plate and cerclage wires and ununited greater trochanteric fra cture fragment are also visualized. There is no baseline exam available to compare the positioning of the greater trochanter fragment and sideplate. The tip of the femoral stem component is excluded fro m view. IMPRESSION: Interval reduction of the prosthetic left hip. Note that we do not have a baseline exam to determine any change in the orientation or position of the patient's sideplate and greater trochanter fracture fragment. Comparison can be made with any available outside studies if indicated.
[2020-05-22 13:30] VITALS: BP 123/86; PULSE 78; RESP 18
== END 2020-05-22 13:29 | disposition home or self-care (01) ==
LOC: EC 09:05
DX: S73.005A Unspecified dislocation of left hip, initial encounter (principal); J45.909 Unspecified asthma, uncomplicated; I10 Essential (primary) hypertension; E78.5 Hyperlipidemia, unspecified; M19.90 Unspecified osteoarthritis, unspecified site; Z79.51 Long term (current) use of inhaled steroids; Z79.899 Other long term (current) drug therapy; Z96.642 Presence of left artificial hip joint; Z87.891 Personal history of nicotine dependence; X50.9XXA Other and unspecified overexertion or strenuous movements or postures, initial encounter
CPT/HCPCS: 99284 ×2; 27250 ×2; 99152 ×2; 99153 ×6; 96374 ×2; 96361 ×2; 73501; 73502; J2405; J2704; J1170

== ENCOUNTER 2020-06-04 20:31 | Emergency (ER) | payer MEDICARE ==
[2020-06-04] MEDS ORDERED: HYDROmorphone 1 MG/ML 1 ML SYRINGE IVP STA (20:43)
--- NOTE | 2020-06-04 20:48 | ED ---
General Adult HPI - General Chief complaint: Extremity Injury, Lower Stated complaint: Fall, left hip pain Time Seen by Provider: 06/04/20 20:34 Source: patient, EMS, RN notes reviewed Mode of arrival: EMS Limitations: no limitations - History of Present Illness Initial comments: Patient is a pleasant 65-year-old female sent to the emergency Department with left hip pain. Patient states she was getting out of her chair and if felt her left hip pop. Patient did have similar symptoms about 10 days ago and needed to have her hip put back in the socket. Patient did have surgery back in February for left hip replacement and did have repeat surgery a couple months following this. No other area of injury. No head injury or loss of consciousness. Discomfort increases with movement. Discomfort is moderate at rest - Related Data Home Medications Medication Instructions Recorded Confirmed FLUoxetine HCL [PROzac] 20 mg PO TID 01/09/14 05/22/20 Zolpidem [Ambien] 10 mg PO HS 01/09/14 05/22/20 Atorvastatin [Lipitor] 40 mg PO QAM 11/08/18 05/22/20 Losartan/Hydrochlorothiazide 1 tab PO QAM 11/08/18 05/22/20 [Losartan-Hctz 100-25 mg Tab] Ibuprofen [Motrin] 600 mg PO Q6HR PRN 02/27/20 05/22/20 Albuterol Sulfate [Ventolin HFA] 1 - 2 puff INHALATION RT-Q6H PRN 04/15/20 05/22/20 Fluticasone Propion/Salmeterol 1 puff INHALATION RT-BID 04/15/20 05/22/20 [Wixela 250-50 Inhub] Previous Rx's Medication Instructions Recorded Aspirin [Adult Low Dose Aspirin EC] 81 mg PO BID #60 tablet. 03/04/20 Allergies Allergy/AdvReac Type Severity Reaction Status Date / Time No Known Allergies Allergy Verified 06/04/20 20:42 Review of Systems ROS Statement: Those systems with pertinent positive or pertinent negative responses have been documented in the HPI. ROS Other: All systems not noted in ROS Statement are negative. Constitutional: Denies: fever Eyes: Denies: eye pain ENT: Denies: ear pain Respiratory: Denies: cough Cardiovascular: Denies: chest pain Endocrine: Denies: fatigue Gastrointestinal: Denies: abdominal pain Genitourinary: Denies: dysuria Musculoskeletal: Reports: as per HPI Skin: Denies: rash Neurological: Denies: weakness Past Medical History Past Medical History: Asthma, Hyperlipidemia, Hypertension, Osteoarthritis (OA) Additional Past Medical History / Comment(s): scheduled for hip replacement on Tuesday-sent to kinesiology professor by PCP because of abnormal EKG, recent stress test History of Any Multi-Drug Resistant Organisms: None Reported Past Surgical History: Appendectomy, Back Surgery, Cholecystectomy, Heart Catheterization, Hysterectomy, Tonsillectomy Additional Past Surgical History / Comment(s): Hx [address] Jones. Low back surgery, bilateral oophorectomy d/t ovarian cysts, cardiac cat h. today Past Anesthesia/Blood Transfusion Reactions: No Reported Reaction Past Psychological History: No Psychological Hx Reported Smoking Status: Former smoker Past Alcohol Use History: None Reported Past Drug Use History: None Reported - Past Family History Father Family Medical History: No Reported History Additional Family Medical History / Comment(s): Father at age 94 of "old age" Mother Family Medical History: Diabetes Mellitus Additional Family Medical History / Comment(s): Mother at 74yrs of pancreatic CA. General Exam Limitations: no limitations General appearance: alert, in no apparent distress Head exam: Present: normocephalic Neck exam: Present: normal inspection. Absent: tenderness Respiratory exam: Present: normal lung sounds bilaterally Cardiovascular Exam: Present: regular rate, normal rhythm Expanded Peripheral pulses: 2+: Posterior Tibialis (L), Dorsalis Pedis (L) GI/Abdominal exam: Present: soft. Absent: tenderness Extremities exam: Present: normal inspection, tenderness (Tenderness left lateral and anterior hip.), other (Left leg shortened and internally rotated distally extremity is Neurovascularly intact) Neurological exam: Present: alert Psychiatric exam: Present: normal affect, normal mood Skin exam: Present: normal color Course Vital Signs 06/04/20 06/04/20 06/04/20 20:38 21:30 21:35 Temperature 98.6 F Pulse Rate 89 85 77 Respiratory 18 20 18 Rate Blood Pressure 151/88 139/82 144/83 O2 Sat by Pulse 98 98 98 Oximetry 06/04/20 06/04/20 06/04/20 21:40 21:45 21:50 Temperature Pulse Rate 64 80 84 Respiratory 16 14 14 Rate Blood Pressure 131/71 124/89 107/70 O2 Sat by Pulse 95 94 L 99 Oximetry 06/04/20 22:00 Temperature Pulse Rate 89 Respiratory 16 Rate Blood Pressure 110/70 O2 Sat by Pulse 100 Oximetry Procedures - Orthopedic Joint Reduction Joint #1 Consent Obtained: verbal consent, written consent Side: left Analgesia: procedural sedation Technique Used: other (Cody Procedure) Post-Reduction Neuro Exam: intact Post-Reduction Vascular Exam: intact Post Reduction X-Ray Obtained: Yes Post Reduction X-Ray Results: reduced Patient Tolerated Procedure: well, no complications - Procedural Sedation Procedural Sedation Start Time: 21:30 Procedural Sedation Stop Time: 21:55 Indications: fracture/dislocation reduction ASA Class: III Mallampati Airway Score: 3 Preparation: eyeglass frames polisher applied, pulse oximeter, capnometry used, supplemental O2 applied IV Propofol Dose (mgs): 150 Complications: none Patient Tolerated Procedure: well, no complications Medical Decision Making - Medical Decision Making Patient reevaluated and remained symptom-free. Patient updated. Case discussed with practitioner branch, covering for Dr. Fulton who is okay with discharge and will follow up with patient this week. Disposition Clinical Impression: Dislocation of hip prosthesis Disposition: HOME SELF-CARE Condition: Stable Instructions (If sedation given, give patient instructions): Moderate Sedation (ED), Hip Dislocation (ED) Additional Instructions: Please follow-up with Dr. Fulton this week. You may also follow-up with her other orthopedic doctor, Dr. Locke. Return for increased pain, weakness, w orsening or change in symptoms or other concerns. Use leg brace at all times. Is patient prescribed a controlled substance at d/c from ED?: No Referrals: Gail Ace MD [Primary Care Provider] - 1-2 days Tunde Fulton DO [Doctor of Osteopathic Medicine] - 1-2 days Time of Disposition: 22:19
--- NOTE | 2020-06-04 21:12 | XR ---
EXAMINATION TYPE: XR Hip LT and AP Pelvis DATE OF EXAM: 06/04/2020 COMPARISON: 05/22/2020. HISTORY: Pain status post fall. TECHNIQUE: A single AP view of the pelvis is obtained. Two views of the left hip are obtained. FINDINGS: There is recurrent superior-posterior dislocation of the left prosthetic hip. There is buffer chrome fernando fracture of the greater trochanter. The remaining visualized osseous structures are anatomic alig nment. There are moderate degenerative changes of the right hip. Lumbar spine fusion is seen. The sac roiliac joints and pubic symphysis are within. IMPRESSION: Recurrent left prosthetic hip dislocation.
[2020-06-04] MEDS: PROPOFOL 10 MG/ML 20 ML VIAL IV ONE ×3 (21:35→21:46)
--- NOTE | 2020-06-04 22:07 | XR ---
EXAMINATION TYPE: XR Hip Limited LT DATE OF EXAM: 06/04/2020 COMPARISON: Today HISTORY: Post reduction TECHNIQUE: Single view FINDINGS: There is anatomic reduction of the prosthetic femoral head. I see no fracture. IMPRESSION: Anatomic reduction.
[2020-06-04] MEDS ORDERED: ONDANSETRON 4 MG/2 ML VIAL IVP STA (22:14)
[2020-06-04 22:33] VITALS: RESP 18
[2020-06-04 23:39] VITALS: BP 124/67; PULSE 78; TEMP 98.1
== END 2020-06-04 23:15 | disposition home or self-care (01) ==
LOC: EC 20:31
DX: T84.021A Dislocation of internal left hip prosthesis, initial encounter (principal); I10 Essential (primary) hypertension; J45.909 Unspecified asthma, uncomplicated; E78.5 Hyperlipidemia, unspecified; M19.90 Unspecified osteoarthritis, unspecified site; Z79.51 Long term (current) use of inhaled steroids; Z79.899 Other long term (current) drug therapy; Z87.891 Personal history of nicotine dependence; Z96.642 Presence of left artificial hip joint; Y79.2 Prosthetic and other implants, materials and accessory orthopedic devices associated with adverse incidents
CPT/HCPCS: 73501; 73502; 99283; 27265; 99152; 99153; 96374; 96375 ×2; J2405; J1170; J2704

== ENCOUNTER 2020-09-13 04:25 | Emergency (ER) | payer MEDICARE ==
[2020-09-13] MEDS ORDERED: SODIUM CHLORIDE 0.9% 1,000 ML IV STA (04:41)
[2020-09-13] MEDS ORDERED: PROPOFOL 10 MG/ML 20 ML VIAL IV ONE (04:41)
--- NOTE | 2020-09-13 04:45 | ED ---
Lower Extremity Injury HPI - General Stated Complaint: Dislocated hip Time Seen by Provider: 09/13/20 04:26 Source: EMS, RN notes reviewed, old records reviewed Mode of arrival: EMS Limitations: no limitations - History of Present Illness Initial Comments: This is a 65-year-old female who presents today for evaluation of severe left hip pain. Patient has history of left hip prosthesis and left hip dislocation. Patient feels like her left hip is dislocated again. She denies any trauma or other complaints. Patient's brought by EMS who has improved pain control MD Complaint: hip injury, thigh injury -: hour(s) Injury: Hip: Left, Pelvis: Left, Thigh: Left Type of Injury: blunt Place: home Severity: severe Severity scale (1-10): 10 Improves With: nothing Worsens With: nothing Associated Symptoms: snap/pop sensation Treatments Prior to Arrival: splint - Related Data Home Medications Medication Instructions Recorded Confirmed FLUoxetine HCL [PROzac] 20 mg PO TID 01/09/14 05/22/20 Zolpidem [Ambien] 10 mg PO HS 01/09/14 05/22/20 Atorvastatin [Lipitor] 40 mg PO QAM 11/08/18 05/22/20 Losartan/Hydrochlorothiazide 1 tab PO QAM 11/08/18 05/22/20 [Losartan-Hctz 100-25 mg Tab] Ibuprofen [Motrin] 600 mg PO Q6HR PRN 02/27/20 05/22/20 Albuterol Sulfate [Ventolin HFA] 1 - 2 puff INHALATION RT-Q6H PRN 04/15/20 05/22/20 Fluticasone Propion/Salmeterol 1 puff INHALATION RT-BID 04/15/20 05/22/20 [Wixela 250-50 Inhub] Previous Rx's Medication Instructions Recorded Aspirin [Adult Low Dose Aspirin EC] 81 mg PO BID #60 tablet. 03/04/20 Allergies Allergy/AdvReac Type Severity Reaction Status Date / Time No Known Allergies Allergy Verified 06/04/20 20:42 Review of Systems ROS Statement: Those systems with pertinent positive or pertinent negative responses have been documented in the HPI. ROS Other: All systems not noted in ROS Statement are negative. Past Medical History Past Medical History: Asthma, Hyperlipidemia, Hypertension, Osteoarthritis (OA) Additional Past Medical History / Comment(s): scheduled for hip replacement on Tuesday-sent to cooker process cheese by PCP because of abnormal EKG, recent stress test History of Any Multi-Drug Resistant Organisms: None Reported Past Surgical History: Appendectomy, Back Surgery, Cholecystectomy, Heart Catheterization, Hysterectomy, Tonsillectomy Additional Past Surgical History / Comment(s): Hx [address] Jones. Low back surgery, bilateral oophorectomy d/t ovarian cysts, cardiac cath. today Past Anesthesia/Blood Transfusion Reactions: No Reported Reaction Past Psychological History: No Psychological Hx Reported Smoking Status: Former smoker Past Alcohol Use History: None Reported Past Drug Use History: None Reported - Past Family History Father Family Medical History: No Reported History Additional Family Medical History / Comment(s): Father at age 94 of "old age" Mother Family Medical History: Diabetes Mellitus Additional Family Medical History / Comment(s): Mother at 74yrs of pancreatic CA. General Exam Limitations: no limitations General appearance: alert, in no apparent distress, anxious, in distress Head exam: Present: atraumatic, normocephalic, normal inspection Eye exam: Present: normal appearance, PERRL, EOMI. Absent: scleral icterus, conjunctival injection, periorbital swelling ENT exam: Present: normal exam, mucous membranes moist Neck exam: Present: normal inspection. Absent: tenderness, meningismus, lymphadenopathy Respiratory exam: Present: normal lung sounds bilaterally. Absent: respiratory distress, wheezes, rales, rhonchi, stridor Cardiovascular Exam: Present: regular rate, normal rhythm, normal heart sounds. Absent: systolic murmur, diastolic murmur, rubs, gallop, clicks GI/Abdominal exam: Present: soft, normal bowel sounds. Absent: distended, tenderness, guarding, rebound, rigid Extremities exam: Present: normal inspection, full ROM, normal capillary refill, other (Dislocation of left hip). Absent: tenderness, pedal edema, joint swelling, calf tenderness Back exam: Present: normal inspection Neurological exam: Present: alert, oriented X3, CN II-XII intact Psychiatric exam: Present: normal affect, normal mood Skin exam: Present: warm, dry, intact, normal color. Absent: rash Course Vital Signs 09/13/20 09/13/20 09/13/20 04:39 05:09 05:12 Temperature 97.8 F Pulse Rate 87 77 Respiratory 20 22 20 Rate Blood Pressure 154/101 125/90 O2 Sat by Pulse 99 100 98 Oximetry 09/13/20 09/13/20 09/13/20 05:15 05:30 05:45 Temperature 97.9 F Pulse Rate 78 83 79 Respiratory 18 18 18 Rate Blood Pressure 125/74 140/83 160/90 O2 Sat by Pulse 98 99 99 Oximetry 09/13/20 09/13/20 06:00 06:15 Temperature 97.8 F Pulse Rate 82 84 Respiratory 18 18 Rate Blood Pressure 155/91 160/87 O2 Sat by Pulse 100 98 Oximetry Procedures - Orthopedic Joint Reduction Joint #1 Consent Obtained: verbal consent Side: left Joint Reduction Location: hip Analgesia: procedural sedation Technique Used: traction/counter-traction, direct manipulation Post-Reduction Neuro Exam: intact Post-Reduction Vascular Exam: intact Post Reduction X-Ray Obtained: Yes Post Reduction X-Ray Results: reduced Splint Applied: Yes Patient Tolerated Procedure: well - Procedural Sedation Indications: incision and drainage of abscess ASA Class: I Mallampati Airway Score: 1 Preparation: monitoring specialist applied, pulse oximeter, capnometry used IV Propofol Dose (mgs): 200 Complications: none Interventions: oxygen applied Patient Tolerated Procedure: well Medical Decision Making - Medical Decision Making 65 female with recurrent hip dislocation. Hip is difficult located here in the ER without difficulty and patient can be discharged home - Radiology Data Radiology results: report reviewed (X-ray left hip does show positive dislocation), image reviewed Disposition Clinical Impression: Hip dislocation, left, Dislocation of hip prosthesis Disposition: HOME SELF-CARE Condition: Good Instructions (If sedation given, give patient instructions): Hip Dislocation (ED) Is patient prescribed a controlled substance at d/c from ED?: No Referrals: Gail Ace MD [Primary Care Provider] - 1-2 days
--- NOTE | 2020-09-13 05:04 | XR ---
EXAM: XR Left Hip With Pelvis When Performed, 2 or 3 Views CLINICAL HISTORY: [email or web address].[email or web address] XR Reason: hip TECHNIQUE: Two or three views of the left hip with pelvis when performed. COMPARISON: 06/04/2020 IMPRESSION: Dislocated arthroplasty femoral hardware from the acetabular cup.
--- NOTE | 2020-09-13 05:35 | XR ---
EXAM: XR Left Hip With Pelvis When Performed, 2 or 3 Views CLINICAL HISTORY: ITS.[email or web address] XR Reason: POST REDUCTION TECHNIQUE: Two or three views of the left hip with pelvis when performed. COMPARISON: 09/13/2020 IMPRESSION: Appropriately reduced.
[2020-09-13 06:03] VITALS: RESP 18
[2020-09-13 06:17] VITALS: BP 160/87; PULSE 84; TEMP 97.8
== END 2020-09-13 06:49 | disposition home or self-care (01) ==
LOC: EC 04:25
DX: T84.021A Dislocation of internal left hip prosthesis, initial encounter (principal); J45.909 Unspecified asthma, uncomplicated; I10 Essential (primary) hypertension; E78.5 Hyperlipidemia, unspecified; M19.90 Unspecified osteoarthritis, unspecified site; Z87.891 Personal history of nicotine dependence; Z79.1 Long term (current) use of non-steroidal anti-inflammatories (NSAID); Z79.51 Long term (current) use of inhaled steroids; Z79.82 Long term (current) use of aspirin; Z83.3 Family history of diabetes mellitus; Z90.722 Acquired absence of ovaries, bilateral; Z96.642 Presence of left artificial hip joint; Y83.8 Other surgical procedures as the cause of abnormal reaction of the patient, or of later complication, without mention of misadventure at the time of the procedure
CPT/HCPCS: 73501; 99284; 27266; 96360; L1830; J2704

== ENCOUNTER → 2020-09-29 | Outpatient (CLI) | payer MEDICARE ==
--- NOTE | 2020-09-29 08:05 | CT ---
EXAMINATION TYPE: CT hip LT wo con DATE OF EXAM: 09/29/2020 COMPARISON: Left hip x-ray September 13, 2020 and older studies HISTORY: Rule out Periprosthetic fracture, recurrent hip dislocation. CT DLP: 637.7 mGycm Automated exposure control for dose reduction was used. FINDINGS: Metallic hardware from total left hip arthroplasty is redemonstrated. Femoral component shows cerclag e wires along with posterior lateral fixating plate. Streak artifact from metallic hardware makes loy luation slightly suboptimal. [place] osseous structures are demineralized. No obvious bony fracture or suspicious surrounding lucency is seen. Prosthetic positioning satisfactory on today's CT Surgical change to the lumbar spine is partially visualized on localizer. Visualized pelvic structures show no suspicious abnormality. Left thigh muscle bulk is maintained. No groin hernia or adenopathy is seen. IMPRESSION: Suboptimal due to streak artifact, no periprosthetic fracture identified.
== END | disposition home or self-care (01) ==
LOC: RADCTMAIN 07:14
PROVIDERS: ATTEND Orthopaedic Surgery
DX: M97.02XA Periprosthetic fracture around internal prosthetic left hip joint, initial encounter (principal)

== ENCOUNTER → 2022-02-24 | Outpatient (CLI) | payer MEDICARE ==
--- NOTE | 2022-02-25 17:32 | BD ---
EXAMINATION TYPE: Axial Bone Density DATE OF EXAM: 02/24/2022 COMPARISON: NONE CLINICAL HISTORY: 66 years year old Female. ICD-10 CODE: N95.8 MENOPAUSAL AND PERIMENOPAUSAL STATE Height: 63 IN Weight: 178 LBS FRAX RISK QUESTIONS: History of Fracture in Adulthood: LT HIP FX AGE 64; RT WRIST FX AGE 47 Secondary Osteoporosis: 3. Menopause before 45: TOTAL HYST AGE 22 RISK FACTORS HISTORY OF: Hip Fracture (Right/Left): LT HIP FX AGE 64 History of Wrist Fracture: RT WRIST FX AGE 47 Surgery to Spine/Hip(right/left)/Wrist (right/left): L SPINE SURGERY 2000; LT HIP 2020; RT WRIST AGE 47 Active: YES Diet low in dairy products/other sources of calcium: YES Postmenopausal woman: TOTAL HYST AGE 22 Take estrogen and/or progesterone medications: NOT NOW How long: TOOK FOR 1 YEAR Lost more than 2 inches in height since high school: YES 3" MEDICATIONS: Additional Medications: LOSARTAN, VENTOLIN, ADVAIR INHALER EXAM MEASUREMENTS: Bone mineral densitometry was performed using the [employer] System. L SPINE SURGERY 2000 LT HIP REPLACED 2019 RT WRIST FX AND SURGERY AGE 47 Bone mineral density about the R hip (g/cm2): 0.747 T Score values are as follows: -----R Neck: -2.1 -----R Total: -2.2 Bone mineral density BASELINE Bone mineral density about the L Wrist (g/cm2): 0.553 T Score values are as follows: -----Dist. R+U: -0.7 -----Prox. R+U: -1.7 -----Radius total: -2.0 Bone mineral density BASELINE FRAX%s: The graph provided illustrates a 18.6 chance for a major osteoporotic fx and a 3.5 chance for the hips probability for fx in 10 years time. IMPRESSION: Osteopenia (T Score between -2.5 and -1). There is slightly increased risk of fracture and the patient may be considered for treatment. Re-Screen 2-5 years. NOTE: T-SCORE=SD OF THE YOUNG ADULT MEAN.
--- NOTE | 2022-02-26 07:49 | MM ---
Reason for Exam: Screening (asymptomatic). Last mammogram was performed 6 year(s) and 10 month(s) ago. Patient History: Menarche at age 11. Patient has no children. Left ovary removed at age 22. Right ovary removed at age 22. Hysterectomy at age 22. Postmenopausal. Maternal grandmother had breast cancer. Maternal aunt had breast cancer. Risk Values: Davina 5 year model risk: 1.9%. NCI Lifetime model risk: 6.2%. Prior Study Comparison: 05/22/2015 Bilateral MG screening mammo w CAD - 2, [facility]. Tissue Density: The breast tissue is almost entirely fat. Findings: Analyzed By CAD. There is no suspicious group of microcalcifications or new suspicious mass in either breast. Overall Assessment: Negative, BI-RAD 1 Management: Screening Mammogram of both breasts in 1 year. A clinical breast exam by your physician is recommended on an annual basis and results should be correlated with mammographic findings. [facility] will attempt to contact patient to return for supplemental views and ultrasound if indicated. Electronically signed and approved by: Galen Bowden DO
== END | disposition home or self-care (01) ==
LOC: RADMAMWWP 14:32
PROVIDERS: ATTEND Internal Medicine
DX: Z12.31 Encounter for screening mammogram for malignant neoplasm of breast (principal); M85.89 Other specified disorders of bone density and structure, multiple sites; Z78.0 Asymptomatic menopausal state; Z80.3 Family history of malignant neoplasm of breast
CPT/HCPCS: 77063; 77067; 77080

== ENCOUNTER 2022-04-07 08:13 | Day surgery (SDC) | payer MEDICARE ==
[2022-04-02 16:08] VITALS: BMI 28.3
[~2022-04-07 08:13] MED LIST changes: -ACETAMINOPHEN TAB 500 MG TAB PO ONE; -DEXAMETHASONE SOD PHOSPHATE 4 MG/ML 1 ML VIAL IV ONE; +LACTATED RINGERS 1,000 ML IV SCH; +LIDOCAINE 1% (10MG/ML) FOR IV START INTRADERMA PRN; -MELOXICAM 7.5 MG TAB PO ONE; -MIDAZOLAM 2 MG/2 ML VIAL IV PRN; -ONDANSETRON 4 MG/2 ML VIAL IVP ONE; -ROPIVACAINE 246.25 MG, EPINEPHrine 0.5 MG, KETOROLAC 30 MG, cloNIDine HCL/PF 80 MCG, WA... MISCELLANE ONE; -TRANEXAMIC ACID 1,000 MG in SODIUM CHLORIDE 0.9% 100 ML IVPB ONE
[2022-04-07 09:11] VITALS: TEMP 98.3
[2022-04-07] MEDS ORDERED: PROPOFOL 10 MG/ML 20 ML VIAL IV ONE (10:01)
--- NOTE | 2022-04-07 10:27 | P.PCN ---
Date of Procedure: 04/07/22 Description of Procedure: PREOPERATIVE DIAGNOSIS: Colonoscopy screening POSTOPERATIVE DIAGNOSIS: Tubular adenoma hepatic flexure Internal hemorrhoids, grade 2 OPERATION: Colonoscopy to the ileocecal valve and appendiceal orifice, cecum Colonoscopy with hot snare polypectomy SURGEON: Carmela Landaverde MD. ANESTHESIA: MAC. INDICATIONS: The patient is an 67-year-old female who presents for colonoscopy screening. Benefits and risks were described and informed consent was obtained. DESCRIPTION OF PROCEDURE: The patient had undergone Sutab prep. The patient had been brought into the operating room and laid in the left lateral decubitus position. After adequate intravenous sedation, the rectum was examined with 2% lidocaine jelly. The prostate was unremarkable. External hemorrhoids were encountered. The rectal tone was within normal limits. No lesions were palpated in the rectal vault. An Olympus colonoscope was advanced until the cecum, ileocecal valve and appendiceal orifice were clearly viewed. The prep was good. No sigmoid diverticulosis was encountered. Colonic polyps were found and removed. No evidence of focal colitis was found. Retroflexion of the scope demonstrated grade 2 internal hemorrhoids without active bleeding or inflammation. The colon was desufflated. The patient had tolerated the procedure well. Withdrawal time was over 6 minutes. FINDINGS: Aronchick preparation quality scale 2 (1-5) Internal hemorrhoids, grade 2 External hemorrhoids, grade \24. No arteriovenous malformations. No sigmoid diverticulosis Removal of 2 polyps: - Snare polypectomy at mid transverse colon, 5 mm tubulovillous adenoma No focal colitis. RECOMMENDATIONS: Given severity of tubular adenomas, recommend repeat colonoscopy 3 years, 2024 Plan - Discharge Summary New Discharge Prescriptions: Continue Zolpidem [Ambien] 10 mg PO HS PRN PRN Reason: Insomnia FLUoxetine HCL [PROzac] 20 mg PO TID Atorvastatin [Lipitor] 10 mg PO QAM Losartan/Hydrochlorothiazide [Losartan-Hctz 100-25 mg Tab] 1 tab PO QAM Ibuprofen [Motrin] 600 mg PO Q6HR PRN PRN Reason: Pain Aspirin [Adult Low Dose Aspirin EC] 81 mg PO BID #60 tablet. Albuterol Sulfate [Ventolin HFA] 1 - 2 puff INHALATION RT-Q6H PRN PRN Reason: Shortness Of Breath Fluticasone Propion/Salmeterol [Wixela 250-50 Inhub] 1 puff INHALATION RT-BID Discharge Medication List FLUoxetine HCL [PROzac] 20 mg PO TID 01/09/14 [History] Zolpidem [Ambien] 10 mg PO HS PRN 01/09/14 [History] Atorvastatin [Lipitor] 10 mg PO QAM 11/08/18 [History] Losartan/Hydrochlorothiazide [Losartan-Hctz 100-25 mg Tab] 1 tab PO QAM 11/08/18 [History] Ibuprofen [Motrin] 600 mg PO Q6HR PRN 02/27/20 [History] Aspirin [Adult Low Dose Aspirin EC] 81 mg PO BID #60 tablet. 03/04/20 [Rx] Albuterol Sulfate [Ventolin HFA] 1 - 2 puff INHALATION RT-Q6H PRN 04/15/20 [History] Fluticasone Propion/Salmeterol [Wixela 250-50 Inhub] 1 puff INHALATION RT-BID 04/15/20 [History] Follow up Appointment(s)/Referral(s): Carmela Landaverde MD [STAFF PHYSICIAN] - As Needed Patient Instructions/Handouts: Colorectal Polyps (GEN) Activity/Diet/Wound Care/Special Instructions: Repeat colonoscopy 3 years, 2024 Discharge Disposition: HOME SELF-CARE
--- NOTE | 2022-04-07 10:28 | P.GSHP ---
History of Present Illness H&P Date: 04/07/22 CHIEF COMPLAINT: Colon screen HISTORY OF PRESENT ILLNESS: The patient is a 67-year-old female who presents for colon screen. Lower endoscopy was offered for further evaluation and management. PAST MEDICAL HISTORY: Please see list. PAST SURGICAL HISTORY: Please see list. MEDICATIONS: Please see list. ALLERGIES: Please see list. SOCIAL HISTORY: No illicit drug use FAMILY HISTORY: No reports of Crohn disease or ulcerative colitis. REVIEW OF ORGAN SYSTEMS: CONSTITUTIONAL: No reports of fevers or chills. PHYSICAL EXAM: VITAL SIGNS: Stable GENERAL: Well-developed pleasant in no acute distress. HEENT: No scleral icterus. Extraocular movements grossly intact. Moist buccal mucosa. NECK: Supple without lymphadenopathy. CHEST: Unlabored respirations. Equal bilateral excursions. CARDIOVASCULAR: Regular rate and rhythm. Distal 2+ pulses. ABDOMEN: Soft, nontender, nondistended. MUSCULOSKELETAL: No clubbing, cyanosis, or edema. ASSESSMENT: 1. Colon screen. PLAN: 1. Recommend proceeding with a lower endoscopy Past Medical History Past Medical History: Asthma, Hyperlipidemia, Hypertension, Osteoarthritis (OA) Additional Past Medical History / Comment(s): abnormal EKG, right wrist fractire History of Any Multi-Drug Resistant Organisms: None Reported Past Surgical History: Appendectomy, Back Surgery, Cholecystectomy, Heart Catheterization, Hysterectomy, Orthopedic Surgery, Tonsillectomy Additional Past Surgical History / Comment(s): Hx [address] upper back surgery by Dr. Jones. Low back surgery, bilateral oophorectomy d/t ovarian cysts, cardiac cath 2020, left total hip replacement and then 2 revisions now with pins and plate Past Anesthesia/Blood Transfusion Reactions: No Reported Reaction Smoking Status: Former smoker - Past Family History Father Family Medical History: No Reported History Additional Family Medical History / Comment(s): Father at age 94 of "old age" Mother Family Medical History: Cancer, Diabetes Mellitus Additional Family Medical History / Comment(s): Mother at 74yrs of pancreatic CA. Medications and Allergies Home Medications Medication Instructions Recorded Confirmed Type FLUoxetine HCL [PROzac] 20 mg PO TID 01/09/14 04/07/22 History Zolpidem [Ambien] 10 mg PO HS PRN 01/09/14 04/07/22 History Atorvastatin [Lipitor] 10 mg PO QAM 11/08/18 04/07/22 History Losartan/Hydrochlorothiazide 1 tab PO QAM 11/08/18 04/07/22 History [Losartan-Hctz 100-25 mg Tab] Ibuprofen [Motrin] 600 mg PO Q6HR PRN 02/27/20 04/02/22 History Aspirin [Adult Low Dose Aspirin EC] 81 mg PO BID #60 tablet. 03/04/20 04/02/22 Rx Albuterol Sulfate [Ventolin HFA] 1 - 2 puff INHALATION RT-Q6H PRN 04/15/20 04/07/22 History Fluticasone Propion/Salmeterol 1 puff INHALATION RT-BID 04/15/20 04/07/22 History [Wixela 250-50 Inhub] Allergies Allergy/AdvReac Type Severity Reaction Status Date / Time No Known Allergies Allergy Verified 04/07/22 09:03 Surgical - Exam Vital Signs Temp Pulse Resp BP Pulse Ox 98.3 F 111 H 16 154/77 97 04/07/22 09:07 04/07/22 09:07 04/07/22 09:07 04/07/22 09:07 04/07/22 09:07
[2022-04-07 10:50] VITALS: BP 148/90; PULSE 93; RESP 18
== END 2022-04-07 11:26 | disposition home or self-care (01) ==
LOC: ORWHC2ENDO 08:13
PROVIDERS: ATTEND Surgery Plastic and Reconstructive Surgery
DX: Z12.11 Encounter for screening for malignant neoplasm of colon (principal); D12.3 Benign neoplasm of transverse colon; K64.4 Residual hemorrhoidal skin tags; K64.1 Second degree hemorrhoids; Z79.1 Long term (current) use of non-steroidal anti-inflammatories (NSAID); Z79.01 Long term (current) use of anticoagulants; Z79.02 Long term (current) use of antithrombotics/antiplatelets; Z79.82 Long term (current) use of aspirin; Z79.51 Long term (current) use of inhaled steroids; Z79.891 Long term (current) use of opiate analgesic; Z79.899 Other long term (current) drug therapy; I10 Essential (primary) hypertension; J45.909 Unspecified asthma, uncomplicated; E78.5 Hyperlipidemia, unspecified; M19.90 Unspecified osteoarthritis, unspecified site; F32.A Depression, unspecified; Z95.818 Presence of other cardiac implants and grafts; Z98.890 Other specified postprocedural states; Z90.49 Acquired absence of other specified parts of digestive tract; Z90.721 Acquired absence of ovaries, unilateral; Z90.722 Acquired absence of ovaries, bilateral; Z96.642 Presence of left artificial hip joint; Z87.891 Personal history of nicotine dependence; Z80.42 Family history of malignant neoplasm of prostate; Z83.3 Family history of diabetes mellitus
CPT/HCPCS: 88305; 45385; J2704

== ENCOUNTER → 2023-07-18 | Outpatient (CLI) | payer MEDICARE ==
--- NOTE | 2023-07-18 23:02 | XR ---
EXAMINATION TYPE: XR lumbosacral spine min 4V DATE OF EXAM: 07/18/2023 COMPARISON: None HISTORY: Right hip pain TECHNIQUE: 5V lumbar spine FINDINGS: Pedicle screws are present as well 3 through S1. There is loss of disc height L3-4 L4-5. Lo ss of disc height is noted L2-3 T12-L1 and L1-2. Some spondylosis in the upper lumbar spine. Alignmen t appears preserved. Facet degenerative changes present L1-2 there is attempted sacralization of L5 b ilaterally. IMPRESSION: 1. Postsurgical changes through the lumbar spine. 2. Advanced degenerative disc changes discussed above
== END | disposition home or self-care (01) ==
LOC: RADXRYALE 11:23
PROVIDERS: ATTEND Internal Medicine
DX: M47.817 Spondylosis without myelopathy or radiculopathy, lumbosacral region (principal); Z98.890 Other specified postprocedural states
CPT/HCPCS: 72110